=== PATIENT | female | born 1940 | race Caucasian/White ===

== ENCOUNTER → 2023-10-14 12:05 | Outpatient (REF) | payer MEDICARE, OTHER, SELFPAY | LOC: MRI 3T 12:05 | PROVIDERS: ATTENDING PHYSICIAN Physician Assistant Surgical; FAMILY PHYSICIAN Nurse Practitioner Family | DX: M47.812 Spondylosis without myelopathy or radiculopathy, cervical region (principal) | CPT/HCPCS: 72141 ==

== ENCOUNTER → 2023-11-21 07:21 | Outpatient (REF) | payer MEDICARE, OTHER, SELFPAY ==
[2023-11-21 08:40] LABS: ALT (SGPT) 16 U/L (0-35); AST (SGOT) 27 U/L (14-36); Albumin 4.1 g/dl (3.5-5.0); Alkaline Phosphatase 79 U/L (38-126); Blood Urea Nitrogen 16 mg/dl (7-17); Calcium 9.6 mg/dl (8.4-10.2); Carbon Dioxide 28 mmol/L (22-30); Chloride 106 mmol/L (98-107); Glucose 95 mg/dl (70-99); Potassium 4.2 mmol/L (3.5-5.1); Sodium 141 mmol/L (135-145); Total Bilirubin 0.5 mg/dl (0.2-1.3); Total Cholesterol 197 mg/dl (50-199); Total Protein 6.9 g/dl (6.3-8.2); Triglyceride 112 mg/dl (10-149); Very Low Density Lipoprotein 22 mg/dl (0-30); eGFR 55.55
[2023-11-21 08:50] LABS: HDL Cholesterol 115 mg/dl; LDL Cholesterol, Calculated 60 mg/dl
== END ==
LOC: REG 07:21
PROVIDERS: ATTENDING PHYSICIAN Nurse Practitioner Family
DX: Z00.00 Encounter for general adult medical examination without abnormal findings (principal); E78.5 Hyperlipidemia, unspecified
CPT/HCPCS: 36415; 80053; 80061

== ENCOUNTER → 2023-12-04 07:12 | Outpatient (REF) | payer MEDICARE, OTHER, SELFPAY ==
[2023-12-04 13:50] LABS: Iron 128 ug/dl (37-170)
[2023-12-04 14:17] LABS: Glycohemoglobin (HgbA1c) 5.7 % (4.0-5.6)
[2023-12-04 14:43] LABS: TSH Reflex To Free T4 1.65 uIU/ml (0.47-4.68)
[2023-12-04 16:17] LABS: Lyme Antibody Screen, EIA Negative (Negative)
[2023-12-04 21:49] LABS: Ferritin 38.9 ng/ml (11.1-264.0)
[2023-12-04 22:20] LABS: Folate 16.3 ng/ml (2.76-20); Vitamin B12 260 pg/ml (239-931)
[2023-12-05 16:23] LABS: Syphilis/T. pallidum Ab Reflex Negative (Negative)
== END ==
LOC: REG 07:12
PROVIDERS: ATTENDING PHYSICIAN Nurse Practitioner Family
DX: G57.93 Unspecified mononeuropathy of bilateral lower limbs (principal); Z00.00 Encounter for general adult medical examination without abnormal findings; M48.062 Spinal stenosis, lumbar region with neurogenic claudication; I10 Essential (primary) hypertension; E78.5 Hyperlipidemia, unspecified; K59.00 Constipation, unspecified; M85.80 Other specified disorders of bone density and structure, unspecified site; Z79.899 Other long term (current) drug therapy; R25.2 Cramp and spasm; M16.12 Unilateral primary osteoarthritis, left hip; M54.2 Cervicalgia; R79.9 Abnormal finding of blood chemistry, unspecified
CPT/HCPCS: 36415; 82607; 82728; 82746; 83036; 83540; 84443; 86618; 86780

== ENCOUNTER → 2024-04-19 07:04 | Outpatient (REF) | payer MEDICARE, OTHER, SELFPAY ==
[2024-04-19 08:08] LABS: Glucose 91 mg/dl (70-99); Iron 71 ug/dl (37-170)
[2024-04-19 08:59] LABS: Vitamin B12 450 pg/ml (239-931)
[2024-04-19 10:12] LABS: Glycohemoglobin (HgbA1c) 5.4 % (4.0-5.6)
[2024-04-20 20:49] LABS: Homocysteine 13 umol/L (0-15)
== END ==
LOC: REG 07:04
PROVIDERS: ATTENDING PHYSICIAN Specialist; FAMILY PHYSICIAN Nurse Practitioner Family
DX: E11.42 Type 2 diabetes mellitus with diabetic polyneuropathy (principal); G62.9 Polyneuropathy, unspecified; R73.01 Impaired fasting glucose; G25.81 Restless legs syndrome; R20.2 Paresthesia of skin; D51.9 Vitamin B12 deficiency anemia, unspecified
CPT/HCPCS: 36415; 82607; 82947; 83036; 83090; 83540; 83921; 84155; 84165

== ENCOUNTER 2024-11-16 20:28 | Inpatient (IN) | payer MEDICARE, OTHER, SELFPAY ==
[2024-11-16 15:29] VITALS: BP 195/104
[2024-11-16 16:23] LABS: % Basophils 0.5 % (0-2); % Eosinophils 1.1 % (0-6); % Immature Granulocytes 0.3 % (0-0.5); % Lymphocytes 18.5 % (20.5-51.1); % Monocytes 7.5 % (1.7-9.3); % Neutrophils 72.1 % (42.2-75.2); Absolute Eosinophils 0.1 10^3/uL (0-0.7); Absolute Lymphocytes 1.4 10^3/uL (1.2-3.4); Absolute Monocytes 0.6 10^3/uL (0.1-0.6); Absolute Neutrophils 5.3 10^3/uL (1.4-6.5); Hematocrit 41.8 % (37.0-47.0); Hemoglobin 13.8 g/dL (12.0-16.0); Mean Corpuscular Hgb 29.8 pg (27.0-31.0); Mean Corpuscular Volume 90.3 fL (81.0-99.0); Mean Platelet Volume 9.9 fL (7.4-10.4); Nucleated Red Blood Cells % 0 %; Platelet Count 284 10^3/uL (130-400); Red Blood Cell Count 4.63 10^6/uL (4.20-5.40); Red Cell Dist. Width 13.2 % (11.5-14.5); White Blood Cell Count 7.3 10^3/uL (4.8-10.8)
[2024-11-16 16:47] LABS: Troponin I < 0.012 ng/ml
[2024-11-16 16:53] LABS: ALT (SGPT) 15 U/L (0-35); AST (SGOT) 27 U/L (14-36); Albumin 4.7 g/dl (3.5-5.0); Alkaline Phosphatase 90 U/L (38-126); Blood Urea Nitrogen 20 mg/dl (7-17); Calcium 10.3 mg/dl (8.4-10.2); Carbon Dioxide 25 mmol/L (22-30); Chloride 102 mmol/L (98-107); Glucose 105 mg/dl (70-99); Sodium 137 mmol/L (135-145); Total Bilirubin 0.7 mg/dl (0.2-1.3); Total Protein 7.3 g/dl (6.3-8.2); eGFR 55.21
[2024-11-16 18:28] VITALS: BP 187/91
--- NOTE | 2024-11-16 18:49 | ED.CVA ---
History of Present Illness
General
Chief Complaint: CVA/TIA Symptoms
Source: patient and spouse
Exam Limitations: none
Time Seen by Provider: 11/16/24 18:32
Onset of Stroke Symptoms
Onset of symptoms known: Yes
Date of onset of symptoms: 11/14/24
History of Present Illness
History of Present Illness:
84-year-old female hypertensive on lisinopril also baby aspirin presents for evaluation of visual changes on the left side trouble seeing things, also walking into a door started greater than 36 hours ago associate with a right-sided headache no
nausea or vomiting, no slurred speech does not appreciate any arm or leg weakness
Past History
Past History
ED Past Medical History: Other (Questionable PFO, herniated disc, arthritis, migraine); Negative Arrthythmia or CVA
ED Past Surgical History: Gynecological
Social History
Tobacco: Non-smoker
Alcohol: None
Drug: None
Personal:
Living: with family
Employment: Retired
Review of Systems
Review of Systems
All Other Systems: Not applicable
Constitutional: Denies fever or fatigue
Respiratory: Reports no symptoms; Denies trouble breathing
Cardiac: Reports no symptoms
ABD/GI: Reports no symptoms
Neurological: Reports headache and other (Visual changes on the left)
Endocrine: Reports no symptoms
Phy Exam
Physical Exam
Physical Exam:
Physical Exam
General: no apparent distress, not acutely ill
Neck: No jaundice
Heart: s1/s2 regular rate and rhythm, no murmur. equal radial pulses.
Lungs: no acute respiratory distress. clear bilaterally
Abdomen: Not
Neuro: alert and oriented. Left-sided visual field cut
Skin: no rash
Psychiatric: well kept. interactive and cooperative
Extremities: no edema.
Course
Orders/Labs/Results
Orders:
Orders
11/16/24 15:33
Electrocardiogram (*1) Urgent
Reason for Study: TIA/Stroke
CT Head W/o Iv Contrast Urgent
Comment:
Reason For Exam: headache
11/16/24 15:34
EKG- Treatment ONCE
11/16/24 16:05
Complete Blood Count/With Diff Urgent
Comprehensive Metabolic Panel Urgent
Troponin I Urgent
11/16/24 18:48
Aspirin 325 mg PO NOW STA
Abnormal Lab Results
11/16/24
16:05
Lymphocytes % 18.5 L %
(20.5-51.1)
BUN 20 H mg/dl
(7-17)
Glucose 105 H mg/dl
(70-99)
Calcium 10.3 H mg/dl
(8.4-10.2)
11/16/24 16:05
11/16/24 16:05
Vital Signs
Initial and Last Documented VS:
Initial Vital Signs
Temp Pulse Resp BP Pulse Ox
98.3 F 81 20 195/104 99
11/16/24 15:29 11/16/24 15:29 11/16/24 15:29 11/16/24 15:29 11/16/24 15:29
Last Documented Vital Signs
Temp Pulse Resp BP Pulse Ox
98.3 F 68 20 187/91 99
11/16/24 15:29 11/16/24 18:32 11/16/24 15:29 11/16/24 18:28 11/16/24 18:30
MDM/Problems Addressed
Differential Diagnosis Includes:
Stroke mass seizure with Alfonso's paralysis hypertensive urgency
MDM/Problems Addressed:
Visual changes headache
Chronic conditions affecting care: HTN
Acute Exacerbation and/or Progression of Chronic Illness: HTN
*Radiology
Radiology exam reviewed: radiology read reviewed
*Pulse Oximetry
Patient hypoxic: no
*EKG
Interpreted by ED Provider?: Yes
Interpretation: normal
Comparison EKG: no comparison EKG present
Heart Rate: 78
Rate: normal
Rhythm: sinus
Ischemia: no ischemia
*Chenille Machine Operator Interpretation
Interpretation: normal
Heart Rate: 78
Rhythm: sinus
*Critical Care Note
Total Time (30-74mins, 75-104mins- exclusive of procedures): 12
Data Reviewed
Source: patient and spouse
Prescriptions/Medications Considered But Not Given:
tpa
Update Note
Update Note:
Patient with strokelike symptoms, CT confirms stroke in the right occipital lobe which appears to correlate with her symptoms, will give full dose aspirin consideration for Plavix, will allow so hypertension permissively here, will be admitted
ED Attending Note
-
Portions of this chart may have been created with voice recognition software.� Occasional wrong word or��sound alike� substitutions may have occurred due to the inherent limitations of voice recognition software.
Discharge Plan
Departure
Patient Disposition: Admit
Date of Disposition: 11/16/24
Time of Disposition: 18:57
Presentation/result/management discussed w/ accepting MD/DO: Hospitalist
Patient with high blood pressure during this ER visit?: Yes
Condition: Fair
Covid-19: Not Applicable
Discharge Problem:
Stroke
Instructions: Stroke (DC)
Prescriptions:
No Action
magnesium 250 mg Tablet
250 mg PO DAILY Qty: 1 0RF
cholecalciferol (vitamin D3) [Vitamin D3] 25 mcg (1,000 unit) Tablet,Chewable
25 mcg PO DAILY Qty: 1 0RF
calcium 500 mg Tablet
500 mg PO DAILY
hydrocodone-acetaminophen 5-325 mg tablet
1 tab PO Q6H PRN (Reason: moderate-severe pain) Qty: 30 0RF
Patient Comments:
for post op
Rx Instructions:
1 tab for moderate pain, 2 if severe.
Dx total joint. Ongoing therapy.
celecoxib [Celebrex] 200 mg capsule
200 mg PO DAILY Qty: 14 0RF
Patient Comments:
for post op
Rx Instructions:
Take with food.
DO NOT take within 2 hours of Aspirin post-surgery.
famotidine [Pepcid] 20 mg tablet
20 mg PO HS Qty: 14 0RF
Patient Comments:
For post op
Rx Instructions:
Take nightly while on Celebrex to reduce GI upset.
dexamethasone 4 mg tablet
4 mg PO BID Qty: 7 0RF
Patient Comments:
for post op
Rx Instructions:
Start night of discharge and take 2x daily until finished.
Take with food.
mupirocin 2 % ointment
1 applic intranasal BID Qty: 1 0RF
Patient Comments:
Applied nasal ointment 01/04/23 at 0500
ondansetron HCl 4 mg tablet
4 mg PO Q6H PRN (Reason: nausea and vomiting) Qty: 20 0RF
Patient Comments:
for post op
cyclobenzaprine 5 mg tablet
5 mg PO HS PRN (Reason: muscle spasm/insomnia) Qty: 10 0RF
Patient Comments:
for post op. Took Monday night. Per patient called Cindy Matta and checked with her to take a dose pre op.
Rx Instructions:
Caution with [place] - can cause drowsiness.
Take only as needed/as directed.
aspirin 325 mg tablet
325 mg PO DAILY Qty: 30 0RF
Rx Instructions:
Take daily x4 weeks for blood clot prevention; then resume Aspirin 81 mg daily.
docusate sodium [Colace] 100 mg capsule
100 mg PO BID Qty: 30 0RF
senna 8.6 mg capsule
17.2 mg PO BID Qty: 30 0RF
acetaminophen 325 mg capsule
650 mg PO Q4H PRN (Reason: mild pain) Qty: 60 0RF
Rx Instructions:
DO NOT exceed >4000 mg daily while on [place].
1 [place] tab = 325 mg of Tylenol.
lisinopril 10 mg Tablet
10 mg PO DAILY Qty: 1 0RF
Rx Instructions:
HOLD if systolic blood pressure <130 while on Hydrocodone.
Interventions
Interventions:
*General Assessment Last Done: 11/16/24 15:29
ED- Pulmonary Assessment Last Done: 11/16/24 18:32
ED- Neurological Assessment Last Done: 11/16/24 18:32
ED- Cardiac Assessment Last Done: 11/16/24 18:32
Discharge Date and Time
Print Language: SLOVAK
[2024-11-16] MEDS: ASPIRIN 325 MG PO (18:55)
[2024-11-16 19:00] VITALS: BP 183/105
--- NOTE | 2024-11-16 19:34 | HPS.HSE ---
Family Physician
-
Family Physician: LUIS Hernandez
Chief Complaint
-
vision symptoms
History of Present Illness
This is a 84-year-old with past medical history of hypertension presenting to the emergency department with approximately 2 days of vision changes.
Patient reports that on evening and she started having difficulty saying the left side of her visual field. She is unable to handle things that are located to the left side. She would not see her if he is on the left side. She
could not see the left side of the TV. She also became confused later on and had difficulty using objects such as her electric toothbrush. She was not having any memory difficulties otherwise. She reported having a headache on the right side of
her head and face. She denies any difficulty with speech. She denies any difficulty swallowing. She denies any numbness or tingling. Spouse denies any facial asymmetry. Patient reports that she takes aspirin daily as well as lisinopril for
blood pressure.
Patient denies known history of CVA however she said that in the late she had an episode of vision changes and was started on aspirin at that time. Patient denies any recent episodes of palpitations. She denies any recent episodes of chest
pain. She denies orthostatic symptoms.
She reports that the vision symptoms have persisted but they confusion with use of objects is improved.
In the emergency department she was hypertensive to 183/100 with a pulse of 78 and satting 98% on room air. ECG shows normal sinus rhythm at a rate of [address] or T wave changes. CBC was unremarkable. Electrolytes BUN/creatinine were
all in normal range. CT of the head shows no density changes localized in the inferior right occipital lobe, just superior to the tentorium cerebelli which is new in comparison to prior images.
Medical History
Past Medical History
Past Medical History: Reports HTN and Other (Peripheral neuropathy)
Past Surgical History: Reports Gynocological (Hysterectomy 1983) and Orthopedic (Status post laminectomy and spinal fusion on 05/24/2022, left total hip arthroplasty in 2022.)
Social History
Tobacco: Non-smoker
Alcohol: None
Drug: None
Personal:
Living: With Family
Employment: Retired
Family History
Family History: Not pertinent
Allergies / Home Medications
Allergies reflects when Allergies were last updated in [facility].
Home Medications with original date entered in [facility]
Allergy/Medication List:
Allergies
Allergy/AdvReac Type Severity Reaction Status Date / Time
mussels Allergy Vomiting Verified 11/16/24 15:28
Penicillins Allergy Rash Verified 11/16/24 15:28
Home Medications
cholecalciferol (vitamin D3) 25 mcg (1,000 unit) chewable tablet (Vitamin D3) 25 mcg PO DAILY Supplement #1 tab 04/28/22
magnesium 250 mg tablet 250 mg PO DAILY Electrolyte Repletion #1 tab 04/28/22
lisinopril 10 mg tablet 10 mg PO DAILY Blood pressure #1 tab 01/04/23
acetaminophen 500 mg tablet 500 mg PO Q6HPRN PRN MILD PAIN 11/16/24
aspirin 81 mg tablet,delayed release 81 mg PO DAILY 11/16/24
calcium carbonate 500 mg PO DAILY 11/16/24
cyanocobalamin (vitamin B-12) 1,000 mcg tablet 1,000 mcg PO DAILY 11/16/24
gabapentin 100 mg capsule 100 mg PO HS 11/16/24
Review of Systems
-
History Source: Patient and Family
Constitutional: Reports No Symptoms
EENT: Reports No Symptoms
Respiratory: Reports No Symptoms
Cardiac: Reports No Symptoms
Abdomen/GI: Reports No Symptoms
: Reports No Symptoms
Musculoskeletal: Reports No Symptoms
Skin: Reports No Symptoms
Neurological: Reports Headache and Other (vision changes)
Endocrine: Reports No Symptoms
Hematologic/Lymphatic: Reports No Symptoms
Psych: Reports No Symptoms
Physical Exam
Vital Signs
Vital Signs
Temp Pulse Resp BP Pulse Ox
98.3 F 78 14 183/105 98
11/16/24 15:29 11/16/24 19:00 11/16/24 19:00 11/16/24 19:00 11/16/24 19:00
Physical Exam
General: Well Developed, Well Nourished, No Apparent Distress, Comfortable and Conversant
HEENT: NormoCephalic, Anicteric, Moist mucous membranes, Atraumatic and Good Dentition
Respiratory: Clear
Cardiac: S1/S2 and Regular Rhythm
Breast: Deferred by me
GI: Soft, Non Tender, Non Distended and Normal Bowel Sounds
Rectal: Deferred by Provider
Genito-urinary: Deferred by me
Musculoskeletal: No Clubbing and No Cyanosis
Neuro: AO x 3, No Motor Deficits, Cranial Nerves Intact, No Sensory Deficits and Other (Left upper quadrantanopia ); No Slurred Speech or Facial Droop
Hematologic/Lymphatic: No Lymphadenopathy
Psych: Calm
Laboratory Results
-
11/16/24 16:05
11/16/24 16:05
Laboratory Results
Total Bilirubin 0.7 mg/dl (0.2-1.3) 11/16/24 16:05
AST 27 U/L (14-36) 11/16/24 16:05
ALT 15 U/L (0-35) 11/16/24 16:05
Alkaline Phosphatase 90 U/L (38-126) 11/16/24 16:05
Troponin I < 0.012 ng/ml 11/16/24 16:05
Data Reviewed
-
CT Scan: Report Reviewed by me
Medical Tests (Nuc Med, Echo, EKG etc): Image Personally Visualized and interpreted
Lab Data: Labs Reviewed by me
Old Records: Reviewed
Impression/Plan
-
IMPRESSION:
84-year-old female with past medical history significant for hypertension and a remote episode of vision loss in the for which she was started on aspirin presents to the emergency department after 2 days of experiencing left upper visual field
loss and some mild confusion. Condition appears to have resolved. She still has left upper quadrantanopsia. CT scan shows changes in the right inferior occipital lobe consistent with an acute CVA. Onset about 48 hours ago. Not a TPA candidate.
NIHSS = 1
PLAN:
1. CVA - Right inferior occipital CVA.
- admit to telemetry
- d/w neuro, CT Head & neck angio, no MRI
- check cardiovascular panel and inflammatory panel
- echo
- continue asa, start plavix 75
- continue lisinopril with permissive hypertention
- neurochecks q 6
- diet as tolerated
- PTOT and community service officer coordinator
- neurology consulted
DVT PPX - lovenox sq
Code status - Full Code
[2024-11-16] MEDS: APRESOLINE 5 MG IV (19:51)
[2024-11-16 19:54] VITALS: BP 180/74; BMI 25.9
[2024-11-16] MEDS: PLAVIX 75 MG PO (19:56)
[2024-11-16 21:10] VITALS: BP 152/91; BMI 22.9
[2024-11-16] MEDS: NEURONTIN 100 MG PO (22:46)
[2024-11-16 23:51] VITALS: BP 125/61
[2024-11-17] VITALS (8 sets, daily range): BP systolic 115–147; BP diastolic 61–82; PULSE 79–90; O2SAT 96; BMI 21.9
--- NOTE | 2024-11-17 01:23 | PTCARENOTE ---
Patient arrived to floor from ED. Patient ambulated from stretcher to bed. Patient oriented to room. Patient's call jules within reach, bed in lowest position. Will continue to monitor.
[2024-11-17 07:48] LABS: HDL Cholesterol 96 mg/dl; LDL Cholesterol, Calculated 82 mg/dl; Magnesium 2.1 mg/dl (1.6-2.3); Total Cholesterol 192 mg/dl (50-199); Triglyceride 72 mg/dl (10-149); Very Low Density Lipoprotein 14 mg/dl (0-30)
[2024-11-17 07:52] LABS: VerifyNow Aspirin 413 ARU
[2024-11-17] MEDS: PLAVIX 75 MG PO (08:07)
[2024-11-17] MEDS: ZESTRIL 10 MG PO (08:07)
[2024-11-17] MEDS: ASPIR LOW (ENTERIC COATED) 81 MG PO (08:07)
[2024-11-17] MEDS: VITAMIN B-12 1000 MCG PO (08:07)
[2024-11-17 08:47] LABS: Glycohemoglobin (HgbA1c) 5.5 % (4.0-5.6)
--- NOTE | 2024-11-17 09:04 | PTOTSP ---
Speech Pathology
Clinical Swallow Evaluation
84F with new R inferior occipital CVA presents with a WFL oropharyngeal swallow. No overt s/s of aspiration or penetration observed this date. Speech to follow oropharyngeal swallowing briefly, re: cannot r/o silent aspiration at bedside this date
given presence of new CVA.
Question possible changes to executive functioning and verbal fluency/word finding. RETAIL INVENTORY CONTROL CLERK service to perform speech/communication evaluation as able.
Recommend:
1. Regular textures (IDDSI 7), thin liquids (IDDSI 0)
2. Meds as best tolerated
3. RETAIL INVENTORY CONTROL CLERK service to follow up re: to ensure diet level tolerance; perform speech/communication evaluation as able.
--- NOTE | 2024-11-17 12:39 | W.PN.HOSP.TC ---
Today's Communication/Plan
-
Echo Monday
PMR eval
Assessment / Plan
Assessment / Plan
Assessment:
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
- continue tele
- CT-A negative. 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
- Echo Monday
- continue ASA/Plavix
- increase to Lipitor 40mg
- neuro-checks
- Neuro eval
- rehab evaluations. Acute rehab recommended. PMR consulted
Essential HTN
- continue MUKESH; normotensive goals
DVT ppx: Lovenox
Code: Full
Anticipated Discharge: 24 - 48 hours
Subjective/Interval History
-
Date of Service: November 17, 2024
resting comfortably
Objective Data
-
Vital Signs:
Vital Signs
Temp Pulse Resp BP Pulse Ox
98.9 F 74 21 128/70 95
11/17/24 11:26 11/17/24 11:26 11/17/24 11:26 11/17/24 11:26 11/17/24 11:26
I&O
11/16/24 11/17/24 11/18/24
06:59 06:59 06:59
Intake Total 480 / 480
Balance 480 / 480
Physical Exam
-
General: No Apparent Distress
HEENT: Normocephalic
Respiratory: Negative Wheezes
Cardiac: Regular Rhythm and S1/S2
GI: Soft and Nontender
Neuro: AO x 3
Psych: Calm
Data Reviewed
-
Total Time Spent with Patient (in minutes): 41
Labs: Labs Reviewed by me
--- NOTE | 2024-11-17 16:41 | CON.NEURO ---
Neuro Assessment/Plan
Assessment
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
90 days of DAPT, Lipitor 80 as [facility] was shown to be superior to stenting for large vessel stenosis
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
advised that the left lower quadrant usually comes back which it seems to be doing, and the left upper quadrant may recover but often doesn't recover;
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
Consultation
Order
Date of Consultation: 11/17/24
Requesting Provider: Jose Manuel Garcia
Reason for Consult: stroke
Subjective/Objective
Subjective Data
Date of Service: November 17, 2024
Objective Data
Vital Signs
Temp Pulse Resp BP Pulse Ox
36.9 C 90 21 129/66 96
11/17/24 15:34 11/17/24 15:34 11/17/24 15:34 11/17/24 15:34 11/17/24 15:34
Lab Results
11/16/24 16:05
11/16/24 16:05
Sodium 137 mmol/L (135-145) 11/16/24 16:05
Potassium 5.0 mmol/L (3.5-5.1) 11/16/24 16:05
BUN 20 mg/dl (7-17) H 11/16/24 16:05
Glucose 105 mg/dl (70-99) H 11/16/24 16:05
Calcium 10.3 mg/dl (8.4-10.2) H 11/16/24 16:05
LDL Cholesterol, Calc 82 mg/dl 11/17/24 06:58
Patient Allergies
mussels Allergy (Verified 11/16/24 15:28)
Vomiting
Penicillins Allergy (Verified 11/16/24 15:28)
Rash
Medications
-
Active Medications
Generic Name Dose Route Start Last Admin
Trade Name Freq PRN Reason Stop Dose Admin
Acetaminophen 650 mg 11/16/24 21:04
Acetaminophen 650 Mg Rectal Suppository RECTAL 12/14/24 21:03
Q4HPRN PRN
WEBER, mild pain, or temp >100.4F
Acetaminophen 650 mg 11/16/24 21:04
Acetaminophen 325 Mg Tablet PO 12/14/24 21:03
Q4HPRN PRN
WEBER, mild pain, or temp >100.4F
Aspirin 81 mg 11/17/24 08:00 11/17/24 08:07
Aspirin 81 Mg (Enteric Coated) Tablet PO 12/15/24 07:59 81 mg
DAILY ANITA Administration
Atorvastatin Calcium 40 mg 11/17/24 18:00
Atorvastatin (Lipitor) 20 Mg Tablet PO 12/15/24 17:59
QPM ANITA
Clopidogrel Bisulfate 75 mg 11/17/24 08:00 11/17/24 08:07
Clopidogrel 75 Mg Tablet PO 12/15/24 07:59 75 mg
DAILY ANITA Administration
Cyanocobalamin 1,000 mcg 11/17/24 08:00 11/17/24 08:07
Cyanocobalamin 1,000 Mcg Tablet PO 12/15/24 07:59 1,000 mcg
DAILY ANITA Administration
Enoxaparin Sodium 40 mg 11/17/24 18:00
Enoxaparin Sodium 40 Mg/0.4 Ml Syringe SC 12/15/24 17:59
QPM ANITA
Gabapentin 100 mg 11/16/24 22:00 11/16/24 22:46
Gabapentin 100 Mg Capsule PO 12/14/24 21:59 100 mg
HS ANITA Administration
Hydralazine HCl 5 mg 11/16/24 23:00
Hydralazine 20 Mg/Ml Vial IV 12/14/24 22:59
Q4HPRN PRN
for SBP > 180
Lisinopril 10 mg 11/17/24 08:00 11/17/24 08:07
Lisinopril 10 Mg Tablet PO 12/15/24 07:59 10 mg
DAILY ANITA Administration
Sodium Chloride 0 flush 11/16/24 22:00
Sodium Chloride 0.9% (Flush) Syringe IV 12/14/24 21:59
PER PROTOCOL ANITA
Home Medications
�Medication �Instructions �Recorded
cholecalciferol (vitamin D3) 25 25 mcg PO DAILY Supplement #1 tab 04/28/22
mcg (1,000 unit) chewable tablet
(Vitamin D3)
magnesium 250 mg tablet 250 mg PO DAILY Electrolyte 04/28/22
Repletion #1 tab
lisinopril 10 mg tablet 10 mg PO DAILY Blood pressure #1 01/04/23
tab
acetaminophen 500 mg tablet 500 mg PO Q6HPRN PRN MILD PAIN 11/16/24
aspirin 81 mg tablet,delayed 81 mg PO DAILY 11/16/24
release
calcium carbonate 500 mg PO DAILY 11/16/24
cyanocobalamin (vitamin B-12) 1,000 mcg PO DAILY 11/16/24
1,000 mcg tablet
gabapentin 100 mg capsule 100 mg PO HS 11/16/24
[2024-11-17] MEDS: LOVENOX 40 MG SC (17:31)
[2024-11-17] MEDS: LIPITOR 80 MG PO (17:31)
[2024-11-17] MEDS: NEURONTIN 100 MG PO (21:04)
[2024-11-17] MEDS: TYLENOL 650 MG PO (23:15)
[2024-11-18] VITALS (7 sets, daily range): BP systolic 121–160; BP diastolic 65–78; PULSE 78; O2SAT 98
[2024-11-18] MEDS: ZESTRIL 10 MG PO (07:48)
[2024-11-18] MEDS: PLAVIX 75 MG PO (07:50)
[2024-11-18] MEDS: VITAMIN B-12 1000 MCG PO (07:50)
[2024-11-18] MEDS: ASPIR LOW (ENTERIC COATED) 81 MG PO (07:50)
[2024-11-18] MEDS: COLACE 100 MG PO ×2 (08:17→21:29)
[2024-11-18] MEDS: MIRALAX 17 GRAMS PO (08:17)
--- NOTE | 2024-11-18 09:48 | CON.MD ---
Documented by User: Bambi Maya PA-C 11/18/24 17:56
Consultation - Medical
-
Referring Provider:�Dr. Sahil Rico
Chief Complaint:�CVA
�
History of Present Illness:�84-year-old female hypertensive on lisinopril also baby aspirin, Peripheral neuropathy, remote episode of vision loss in the for which she was started on aspirin who presents for evaluation of the left upper visual
field loss and some mild confusion. Had trouble seeing things, also walking into a door started greater than 36 hours ago associate with a right-sided headache no nausea or vomiting, no slurred speech does not appreciate any arm or leg weakness. She
still has left upper quadrantanopsia. CT scan shows changes in the right inferior occipital lobe consistent with an acute CVA. Onset about 48 hours ago. Not a TPA candidate. NIHSS = 1.
�
CT scan of Head -11/16/2024
Subtle poorly defined of decreased density within the inferior right occipital lobe just superior to the tentorium. This appears to involve the white matter and cortex. This appears to be new since previous examinations. On consideration would be a
focal area of infarction, age uncertain. However, other etiologies such as edema or demyelination are considered. As warranted, consider further evaluation with MRI of the brain without and with contrast, if there are no contraindications. Mild to
moderate diffuse atrophy.
CTA- head and neck - 11/16/2024 -Questionable mild diminished and irregular enhancement involving the right posterior cerebral artery P2 and P2 segments, raising possibility of cerebrovascular disease.
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
Echo 11/18/2024
Normal left ventricular chamber size. Normal left ventricular systolic
function. Left ventricular ejection fraction is 55%.
Mild mitral regurgitation.
Mild aortic regurgitation.
Mild tricuspid regurgitation.
No prior echocardiogram for comparison
�
Past Medical History:�Questionable PFO, herniated disc, arthritis, migraine, Peripheral neuropathy, laminectomy and spinal fusion on 05/24/2022, left total hip arthroplasty in 2022.) Left upper quadrantanopia
Procedure History:�Hysterectomy 1983, status post laminectomy and spinal fusion on 05/24/2022, left total hip arthroplasty in 2022
Family History:�not pertinent
�
Social History:�
Functional Level Premorbidly:�Independent with all activities�
Functional Level Currently:�Transfer�supervision, ambulated 30 feet +15 feet with rolling walker and min assist x 1 for balance with turning. Walk with reciprocal gait, relying on rolling walker which patient does not use at baseline., Loss of
balance with turning. Grooming�set up, toileting�min assist, upper extremity care set up, lower extremity self-care�min assist,
�
Tobacco:�Denies�
Alcohol:�Denies�
Drug use:�Denies�
�
Lives with:�spouse
24-hour assistance available:�
Number of floors:�Multi level
# steps to enter:�2
# steps to second floor: 5 or 7 steps to get to bedroom.
Potential First floor set up:�no
Driving:�Yes
Occupation:�Retired
�
�
Allergies:�
Allergy/AdvReac Type Severity Reaction Status Date / Time
mussels Allergy Vomiting Verified 11/16/24 15:28
Penicillins Allergy Rash Verified 11/16/24 15:28
�
Review of Systems:�
Constitutional: (x) Normal _
Eye: (x) abNormal _visual loss left eye
Ear/Nose/Throat: (x) Normal _
Respiratory: (x) Normal _
Cardiovascular: (x) Normal _
Gastrointestinal: (x) Normal _
Genitourinary: (x) Normal _
Musculoskeletal: (x) Normal _
Integumentary: (x) Normal _
Neurologic: (x) abNormal _CVA
Psychiatric: (x) Normal _
Endocrine: (x) Normal _
Hematologic/Lymphatic: (x) Normal _
Allergic/Immunologic: (x) Normal _
�
Medications:�
Active Current Visit Medication List
Category Date Time Status
Acetaminophen [Tylenol/Feverall] Med 11/16/24 21:04 Active
650 mg RECTAL Q4HPRN PRN
Acetaminophen [Tylenol] Med 11/16/24 21:04 Active
650 mg PO Q4HPRN PRN
Aspirin Low Dose EC [Aspir Low (Enteric Coated)] Med 11/17/24 08:00 Active
81 mg PO DAILY
Atorvastatin [Lipitor] Med 11/17/24 18:00 Active
80 mg PO QPM
Bisacodyl [Dulcolax] Med 11/18/24 07:59 Active
10 mg RECTAL DAILYPRN PRN
Clopidogrel Bisulfate [Plavix] Med 11/17/24 08:00 Active
75 mg PO DAILY
Cyanocobalamin [Vitamin B-12] Med 11/17/24 08:00 Active
1,000 mcg PO DAILY
Docusate Sodium [Colace] Med 11/18/24 08:00 Active
100 mg PO BID
Enoxaparin Sodium [Lovenox] Med 11/17/24 18:00 Active
40 mg SC QPM
Flush (0.9% Sodium Chloride) [Flush (Nss)] Med 11/16/24 22:00 Active
See Dose Instructions IV PER PROTOCOL
Gabapentin [Neurontin] Med 11/16/24 22:00 Active
100 mg PO HS
HydrALAZINE [Apresoline] Med 11/16/24 23:00 Active
5 mg IV Q4HPRN PRN
Lisinopril [Zestril] Med 11/17/24 08:00 Active
10 mg PO DAILY
Polyethylene Glycol Powder [Miralax] Med 11/18/24 08:00 Active
17 grams PO DAILY
�
Vitals:�
Temp Pulse Resp BP Pulse Ox
98.0 F 87 18 127/68 98
11/18/24 15:05 11/18/24 15:05 11/18/24 15:05 11/18/24 15:05 11/18/24 15:05
Height 5 ft 3 in
Actual Weight 56.109 kg
Body Mass Index (BMI) 21.9
�
Physical Exam:�
General Appearance/Observation: Well-developed, well-nourished individual in no apparent distress.�
Pain/Comfort Assessment: Denies�
Mood/Affect: Appropriate�, pleasant
�
Integumentary/Operative Site:�
�� Pressure Ulcer Evaluation: absent over heels.�
��
�� Other Type of Wound: absent�
��
�
Eyes: Conjunctiva/Lids: normal���� Pupils: pupils equal round and reactive to light and Accommodation�
Ears/Nose/Throat: oral mucosa moist,� throat clear.������������ Lips/Teeth/Gums: normal�
Neck: No muscle spasm or tenderness�
Cardiovascular: Heart: regular, no murmur�
Pulses: dorsalis pedis 2+ bilaterally�
Respiratory: Respiratory Effort/Chest Expansion: normal������� Auscultation: Clear to auscultation bilaterally�
Gastrointestinal: abdomen not tender, no distension, normal abdominal bowel sounds
Genitourinary: No Dowling�
Extremities:�Edema: None�Cyanosis: None�Trophic�changes: None
�
Neurology Exam:
Orientation: Alert, Oriented to self, Time, Place�
Memory: Intact for immediate medical concerns
Comprehension: Intact
Two step command: Intact
Naming: Intact
Cranial Nerves:
�� CNII:�Pupillary light reflex: Intact����Visual Field: Impaired on the left ,
�� CN III, IV, : Extraocular muscles: Intact�
�� CN V:�Facial Sensation�at�Forehead: Intact,�Maxilla: Intact,�Mandible: Intact
�� CN VII:�Facial movement: Symmetric
�� CN VIII:�Hearing: Normal
�� CN IX/X:�Speech & swallow: Normal,�Position of Uvula: Midline
�� CN XI:�Shoulder shrug: Symmetric
�� CN XII:�Tongue protrusion: Midline
Sensory:
�� Light touch: Intact in bilateral upper and lower extremities
��
�
Reflexes:
�� Biceps: 2+ bilaterally
�� Brachioradialis: 2+ bilaterally
�� Triceps: 2+ bilaterally
�� Patellar: 2+ bilaterally
�� Achilles: 1/4 bilaterally
�� Babinski: Down going bilaterally
�� Clonus: None
�� Vitaliy: Negative bilaterally�
Cerebellar: Dysmetria/Ataxia: None�
Musculoskeletal:
Motor: (Manual muscle scale 0-5)�
Muscle SA EF WE EE FF FA HF KE DF EHL PF
Right� 5 5 5 5 5 5 5 5 5 5 5
Left 5 5 5 5 5 5 5 5 5 5 5
�
Tone: Normal in all extremities�
Range of Motion: Passively within normal limits in all extremities�
�
Lab Results
Labs
WBC 5.1 10^3/uL (4.8-10.8) 11/18/24 08:06
RBC 4.55 10^6/uL (4.20-5.40) 11/18/24 08:06
Hgb 13.5 g/dL (12.0-16.0) 11/18/24 08:06
Hct 41.4 % (37.0-47.0) 11/18/24 08:06
MCV 91.0 fL (81.0-99.0) 11/18/24 08:06
MCH 29.7 pg (27.0-31.0) 11/18/24 08:06
MCHC 32.6 g/dL (33.0-37.0) L 11/18/24 08:06
RDW 13.3 % (11.5-14.5) 11/18/24 08:06
Plt Count 266 10^3/uL (130-400) 11/18/24 08:06
MPV 10.0 fL (7.4-10.4) 11/18/24 08:06
Abs Immat Gran (auto) 0.0 10^3/uL (0-0.05) 11/16/24 16:05
Absolute Neuts (auto) 5.3 10^3/uL (1.4-6.5) 11/16/24 16:05
Absolute Lymphs (auto) 1.4 10^3/uL (1.2-3.4) 11/16/24 16:05
Absolute Monos (auto) 0.6 10^3/uL (0.1-0.6) 11/16/24 16:05
Absolute Eos (auto) 0.1 10^3/uL (0-0.7) 11/16/24 16:05
Absolute Basos (auto) 0.0 10^3/uL (0-0.2) 11/16/24 16:05
Immature Gran % 0.3 % (0-0.5) 11/16/24 16:05
Neutrophils % 72.1 % (42.2-75.2) 11/16/24 16:05
Lymphocytes % 18.5 % (20.5-51.1) L 11/16/24 16:05
Monocytes % 7.5 % (1.7-9.3) 11/16/24 16:05
Eosinophils % 1.1 % (0-6) 11/16/24 16:05
Basophils % 0.5 % (0-2) 11/16/24 16:05
Nucleated RBC % 0 % 11/16/24 16:05
Plt Function - Aspirin 413 ARU 11/17/24 06:58
Sodium 139 mmol/L (135-145) 11/18/24 08:06
Potassium 4.6 mmol/L (3.5-5.1) 11/18/24 08:06
Chloride 105 mmol/L (98-107) 11/18/24 08:06
Carbon Dioxide 26 mmol/L (22-30) 11/18/24 08:06
BUN 22 mg/dl (7-17) H 11/18/24 08:06
Creatinine 0.9 mg/dL (0.6-1.0) 11/18/24 08:06
Estimated Creat Clear 38 ml/min 11/18/24 08:06
eGFR > 60.00 11/18/24 08:06
Glucose 81 mg/dl (70-99) 11/18/24 08:06
Hemoglobin A1c 5.5 % (4.0-5.6) 11/17/24 06:58
Calcium 9.5 mg/dl (8.4-10.2) 11/18/24 08:06
Magnesium 2.1 mg/dl (1.6-2.3) 11/17/24 06:58
Total Bilirubin 0.7 mg/dl (0.2-1.3) 11/16/24 16:05
AST 27 U/L (14-36) 11/16/24 16:05
ALT 15 U/L (0-35) 11/16/24 16:05
Alkaline Phosphatase 90 U/L (38-126) 11/16/24 16:05
Troponin I < 0.012 ng/ml 11/16/24 16:05
Total Protein 7.3 g/dl (6.3-8.2) 11/16/24 16:05
Albumin 4.7 g/dl (3.5-5.0) 11/16/24 16:05
Triglycerides 72 mg/dl (10-149) 11/17/24 06:58
Total Cholesterol 192 mg/dl (50-199) 11/17/24 06:58
LDL Cholesterol, Calc 82 mg/dl 11/17/24 06:58
VLDL Cholesterol, Calc 14 mg/dl (0-30) 11/17/24 06:58
HDL Cholesterol 96 mg/dl 11/17/24 06:58
�
Diagnostic Results:�as per HPI�
�
Echo 11/18/2024
Normal left ventricular chamber size. Normal left ventricular systolic
function. Left ventricular ejection fraction is 55%.
Mild mitral regurgitation.
Mild aortic regurgitation.
Mild tricuspid regurgitation.
No prior echocardiogram for comparison
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
�
Plan�
PT/OT to increase independence with ADLs, improve balance, coordination, endurance, strength, mobility, community reintegration, decreased burden of care on others and family education.�
�
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 Per neuro- 90 days of DAPT. Cont aspirin and started on Plavix 75mg. statin, and blood pressure control (SBP less than 180 and diastolic less than 100 to participate with
therapy for ischemic stroke). Continue to monitor neurologic status.�
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 Will need help scanning the environment
HTN: Lisinopril 10 mg daily, hydralazine 5 mg IV every 4 as needed,, monitor closely�
HLD: Atorvastatin 80 mg every afternoon
Psych: Psychology consult.� Monitor mood, adjust medications as needed.�
Skin: monitor for pressure sores/rashes/lesions.�
Pain: acetaminophen as needed.� Gabapentin 100 mg at bedtime
Bowel: Colace and Senna, PRN bisacodyl.�
Bladder: Time void, PVRs, PRN straight cath.�
GI Prophylaxis: can add Pantoprazole�
DVT Prophylaxis: Mechanical and Lovenox 40 every afternoon
Pulmonary: Incentive spirometry�
Safety: Continue to reinforce assistance with all transfers.�
Code Status:� DNR�
Dispo�(date/plan/equipment needs): Home with family care.� Social history reviewed.�
�
Functional and Medical Goals:�Modified Independent with ADL�s, ambulation, transfers�
�
�-�Discharge Destination:�Acute inpatient rehabilitation for PT/OT to increase independence with ADLs, improve balance, coordination, endurance, strength, mobility,
�
Thank you for allowing me to care for your patient. Please contact me with any questions or concerns.

Documented by User: Blake Og MD 11/18/24 22:28
Consultation - Medical
-
Referring Provider:�Dr. Sahil Rico
Chief Complaint:�CVA
�
History of Present Illness:�84-year-old female hypertensive on lisinopril also baby aspirin, Peripheral neuropathy, remote episode of vision loss in the for which she was started on aspirin who presents for evaluation of the left upper visual
field loss and some mild confusion. Had trouble seeing things, also walking into a door started greater than 36 hours ago associate with a right-sided headache no nausea or vomiting, no slurred speech does not appreciate any arm or leg weakness. She
still has left upper quadrantanopsia. CT scan shows changes in the right inferior occipital lobe consistent with an acute CVA. Onset about 48 hours ago. Not a TPA candidate. NIHSS = 1.
�
CT scan of Head -11/16/2024
Subtle poorly defined of decreased density within the inferior right occipital lobe just superior to the tentorium. This appears to involve the white matter and cortex. This appears to be new since previous examinations. On consideration would be a
focal area of infarction, age uncertain. However, other etiologies such as edema or demyelination are considered. As warranted, consider further evaluation with MRI of the brain without and with contrast, if there are no contraindications. Mild to
moderate diffuse atrophy.
CTA- head and neck - 11/16/2024 -Questionable mild diminished and irregular enhancement involving the right posterior cerebral artery P2 and P2 segments, raising possibility of cerebrovascular disease.
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
Echo 11/18/2024
Normal left ventricular chamber size. Normal left ventricular systolic
function. Left ventricular ejection fraction is 55%.
Mild mitral regurgitation.
Mild aortic regurgitation.
Mild tricuspid regurgitation.
No prior echocardiogram for comparison
�
Past Medical History:�Questionable PFO, herniated disc, arthritis, migraine, Peripheral neuropathy, Left upper quadrantanopia
Procedure History:�Hysterectomy 1983, status post laminectomy and spinal fusion on 05/24/2022, left total hip arthroplasty in 2022
Family History:�not pertinent
�
Social History:�
Functional Level Premorbidly:�Independent with all activities�
Functional Level Currently:�Transfer�supervision, ambulated 30 feet +15 feet with rolling walker and min assist x 1 for balance with turning. Walk with reciprocal gait, relying on rolling walker which patient does not use at baseline., Loss of
balance with turning. Grooming�set up, toileting�min assist, upper extremity care set up, lower extremity self-care�min assist,
�
Tobacco:�Denies�
Alcohol:�Denies�
Drug use:�Denies�
�
Lives with:�spouse
24-hour assistance available:�Yes
Number of floors:�Multi level
# steps to enter:�2
# steps to second floor: 5 or 7 steps to get to bedroom.
Potential First floor set up:�no
Driving:�Yes
Occupation:�Retired
�
�
Allergies:�
Allergy/AdvReac Type Severity Reaction Status Date / Time
mussels Allergy Vomiting Verified 11/16/24 15:28
Penicillins Allergy Rash Verified 11/16/24 15:28
�
Review of Systems:�
Constitutional: (x) Normal _
Eye: (x) abNormal _visual loss left eye
Ear/Nose/Throat: (x) Normal _
Respiratory: (x) Normal _
Cardiovascular: (x) Normal _
Gastrointestinal: (x) Normal _
Genitourinary: (x) Normal _
Musculoskeletal: (x) Normal _
Integumentary: (x) Normal _
Neurologic: (x) abNormal _CVA with vision and balance concerns.
Psychiatric: (x) Normal _
Endocrine: (x) Normal _
Hematologic/Lymphatic: (x) Normal _
Allergic/Immunologic: (x) Normal _
�
Medications:�
Active Current Visit Medication List
Category Date Time Status
Acetaminophen [Tylenol/Feverall] Med 11/16/24 21:04 Active
650 mg RECTAL Q4HPRN PRN
Acetaminophen [Tylenol] Med 11/16/24 21:04 Active
650 mg PO Q4HPRN PRN
Aspirin Low Dose EC [Aspir Low (Enteric Coated)] Med 11/17/24 08:00 Active
81 mg PO DAILY
Atorvastatin [Lipitor] Med 11/17/24 18:00 Active
80 mg PO QPM
Bisacodyl [Dulcolax] Med 11/18/24 07:59 Active
10 mg RECTAL DAILYPRN PRN
Clopidogrel Bisulfate [Plavix] Med 11/17/24 08:00 Active
75 mg PO DAILY
Cyanocobalamin [Vitamin B-12] Med 11/17/24 08:00 Active
1,000 mcg PO DAILY
Docusate Sodium [Colace] Med 11/18/24 08:00 Active
100 mg PO BID
Enoxaparin Sodium [Lovenox] Med 11/17/24 18:00 Active
40 mg SC QPM
Flush (0.9% Sodium Chloride) [Flush (Nss)] Med 11/16/24 22:00 Active
See Dose Instructions IV PER PROTOCOL
Gabapentin [Neurontin] Med 11/16/24 22:00 Active
100 mg PO HS
HydrALAZINE [Apresoline] Med 11/16/24 23:00 Active
5 mg IV Q4HPRN PRN
Lisinopril [Zestril] Med 11/17/24 08:00 Active
10 mg PO DAILY
Polyethylene Glycol Powder [Miralax] Med 11/18/24 08:00 Active
17 grams PO DAILY
�
Vitals:�
Temp Pulse Resp BP Pulse Ox
98.0 F 87 18 127/68 98
11/18/24 15:05 11/18/24 15:05 11/18/24 15:05 11/18/24 15:05 11/18/24 15:05
Height 5 ft 3 in
Actual Weight 56.109 kg
Body Mass Index (BMI) 21.9
�
Physical Exam:�
General Appearance/Observation: Well-developed, well-nourished female in no apparent distress.�
Pain/Comfort Assessment: Denies�
Mood/Affect: Appropriate�, pleasant
�
Integumentary/Operative Site:�no lesions noted during exam
�
Eyes: Conjunctiva/Lids: normal���� Pupils: pupils equal round and reactive to light and Accommodation�
Ears/Nose/Throat: oral mucosa moist,� throat clear.������������ Lips/Teeth/Gums: normal�
Cardiovascular: Heart: regular, no murmur�
Pulses: dorsalis pedis 2+ bilaterally�
Respiratory: Respiratory Effort/Chest Expansion: normal������� Auscultation: Clear to auscultation bilaterally�
Gastrointestinal: abdomen not tender, no distension, normal abdominal bowel sounds
Genitourinary: No Dowling�
Extremities:�Edema: None�Cyanosis: None�Trophic�changes: None
Neurology Exam:
Orientation: Alert, Oriented to self, Time, Place�
Memory: Intact for immediate medical concerns
Comprehension: Intact
Two step command: Intact
Naming: Intact
Cranial Nerves:
�� CNII:�Pupillary light reflex: Intact����Visual Field: Left homonymous hemianopsia
�� CN III, IV, : Extraocular muscles: Intact�
�� CN V:�Facial Sensation�at�Forehead: Intact,�Maxilla: Intact,�Mandible: Intact
�� CN VII:�Facial movement: Symmetric
�� CN VIII:�Hearing: Normal
�� CN IX/X:�Speech & swallow: Normal,�Position of Uvula: Midline
�� CN XI:�Shoulder shrug: Symmetric
�� CN XII:�Tongue protrusion: Midline
Sensory:
�� Light touch: Intact in bilateral upper and lower extremities, no extinction to double simultaneous stimulation.
��
�
Reflexes:
�� Biceps: 2+ bilaterally
�� Brachioradialis: 2+ bilaterally
�� Triceps: 2+ bilaterally
�� Patellar: 2+ bilaterally
�� Achilles: 0 bilaterally
�� Babinski: Down going bilaterally
�� Clonus: None
�� Vitaliy: Negative bilaterally�
Cerebellar: Dysmetria/Ataxia: None�
Musculoskeletal: Motor: (Manual muscle scale 0-5)�
Muscle SA EF WE EE FF FA HF KE DF EHL PF
Right� 5 5 5 5 5 5 5 5 5 5 5
Left 5 5 5 5 5 5 5 5 5 5 5
�
Tone: Normal in all extremities�
Range of Motion: Passively within normal limits in all extremities�
�
Lab Results
Labs
WBC 5.1 10^3/uL (4.8-10.8) 11/18/24 08:06
RBC 4.55 10^6/uL (4.20-5.40) 11/18/24 08:06
Hgb 13.5 g/dL (12.0-16.0) 11/18/24 08:06
Hct 41.4 % (37.0-47.0) 11/18/24 08:06
MCV 91.0 fL (81.0-99.0) 11/18/24 08:06
MCH 29.7 pg (27.0-31.0) 11/18/24 08:06
MCHC 32.6 g/dL (33.0-37.0) L 11/18/24 08:06
RDW 13.3 % (11.5-14.5) 11/18/24 08:06
Plt Count 266 10^3/uL (130-400) 11/18/24 08:06
MPV 10.0 fL (7.4-10.4) 11/18/24 08:06
Abs Immat Gran (auto) 0.0 10^3/uL (0-0.05) 11/16/24 16:05
Absolute Neuts (auto) 5.3 10^3/uL (1.4-6.5) 11/16/24 16:05
Absolute Lymphs (auto) 1.4 10^3/uL (1.2-3.4) 11/16/24 16:05
Absolute Monos (auto) 0.6 10^3/uL (0.1-0.6) 11/16/24 16:05
Absolute Eos (auto) 0.1 10^3/uL (0-0.7) 11/16/24 16:05
Absolute Basos (auto) 0.0 10^3/uL (0-0.2) 11/16/24 16:05
Immature Gran % 0.3 % (0-0.5) 11/16/24 16:05
Neutrophils % 72.1 % (42.2-75.2) 11/16/24 16:05
Lymphocytes % 18.5 % (20.5-51.1) L 11/16/24 16:05
Monocytes % 7.5 % (1.7-9.3) 11/16/24 16:05
Eosinophils % 1.1 % (0-6) 11/16/24 16:05
Basophils % 0.5 % (0-2) 11/16/24 16:05
Nucleated RBC % 0 % 11/16/24 16:05
Plt Function - Aspirin 413 ARU 11/17/24 06:58
Sodium 139 mmol/L (135-145) 11/18/24 08:06
Potassium 4.6 mmol/L (3.5-5.1) 11/18/24 08:06
Chloride 105 mmol/L (98-107) 11/18/24 08:06
Carbon Dioxide 26 mmol/L (22-30) 11/18/24 08:06
BUN 22 mg/dl (7-17) H 11/18/24 08:06
Creatinine 0.9 mg/dL (0.6-1.0) 11/18/24 08:06
Estimated Creat Clear 38 ml/min 11/18/24 08:06
eGFR > 60.00 11/18/24 08:06
Glucose 81 mg/dl (70-99) 11/18/24 08:06
Hemoglobin A1c 5.5 % (4.0-5.6) 11/17/24 06:58
Calcium 9.5 mg/dl (8.4-10.2) 11/18/24 08:06
Magnesium 2.1 mg/dl (1.6-2.3) 11/17/24 06:58
Total Bilirubin 0.7 mg/dl (0.2-1.3) 11/16/24 16:05
AST 27 U/L (14-36) 11/16/24 16:05
ALT 15 U/L (0-35) 11/16/24 16:05
Alkaline Phosphatase 90 U/L (38-126) 11/16/24 16:05
Troponin I < 0.012 ng/ml 11/16/24 16:05
Total Protein 7.3 g/dl (6.3-8.2) 11/16/24 16:05
Albumin 4.7 g/dl (3.5-5.0) 11/16/24 16:05
Triglycerides 72 mg/dl (10-149) 11/17/24 06:58
Total Cholesterol 192 mg/dl (50-199) 11/17/24 06:58
LDL Cholesterol, Calc 82 mg/dl 11/17/24 06:58
VLDL Cholesterol, Calc 14 mg/dl (0-30) 11/17/24 06:58
HDL Cholesterol 96 mg/dl 11/17/24 06:58
�
Diagnostic Results:�as per HPI�
�
Echo 11/18/2024
Normal left ventricular chamber size. Normal left ventricular systolic
function. Left ventricular ejection fraction is 55%.
Mild mitral regurgitation.
Mild aortic regurgitation.
Mild tricuspid regurgitation.
No prior echocardiogram for comparison
Assessment:
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
�
Plan�
PT/OT to increase independence with ADLs, improve balance, coordination, endurance, strength, mobility, community reintegration, decreased burden of care on others and family education.�
�
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 Per neuro- 90 days of DAPT. Cont aspirin and started on Plavix 75mg. statin, and blood pressure control (SBP less than 180 and diastolic less than 100 to participate with therapy for ischemic
stroke). Continue to monitor neurologic status.�
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 Will need help scanning the environment
HTN: Lisinopril 10 mg daily, hydralazine 5 mg IV every 4 as needed,, monitor closely�
HLD: Atorvastatin 80 mg every afternoon
Psych: Psychology consult.� Monitor mood, adjust medications as needed.�
Skin: monitor for pressure sores/rashes/lesions.�
Pain: acetaminophen as needed.� Gabapentin 100 mg at bedtime
Bowel: Colace and Senna, PRN bisacodyl.�
Bladder: Time void, PVRs, PRN straight cath.�
GI Prophylaxis: can add Pantoprazole�
DVT Prophylaxis: Mechanical and Lovenox 40 every afternoon
Pulmonary: Incentive spirometry�
Safety: Continue to reinforce assistance with all transfers.�
Code Status:� Full code per chart
Dispo�(date/plan/equipment needs): Home with family care.� Social history reviewed.�
Functional and Medical Goals:�Modified Independent with ADL�s, ambulation, transfers�
Discharge Destination:�Acute inpatient rehabilitation
Attending Statement:
I saw and examined the patient today. Reviewed care plan with patient, therapy, nursing, and physician chef's assistant. I agree with the above subjective and physical exam, and plan as documented by TORI Maya with adjustments made as necessary. A
total of 60 minutes were spent with the patient preparing for the evaluation, obtaining history, performing examination and evaluation, counseling, data review, case management, care coordination, circuit recorder, and EMR documentation.
�
Thank you for allowing me to care for your patient. Please contact me with any questions or concerns.
[2024-11-18 10:03] LABS: Hematocrit 41.4 % (37.0-47.0); Hemoglobin 13.5 g/dL (12.0-16.0); Mean Corp Hgb Conc. 32.6 g/dL (33.0-37.0); Mean Corpuscular Hgb 29.7 pg (27.0-31.0); Platelet Count 266 10^3/uL (130-400); Red Blood Cell Count 4.55 10^6/uL (4.20-5.40); Red Cell Dist. Width 13.3 % (11.5-14.5); White Blood Cell Count 5.1 10^3/uL (4.8-10.8)
[2024-11-18 10:29] LABS: Blood Urea Nitrogen 22 mg/dl (7-17); Calcium 9.5 mg/dl (8.4-10.2); Carbon Dioxide 26 mmol/L (22-30); Chloride 105 mmol/L (98-107); Estimated Creatinine Clearance 38 ml/min; Potassium 4.6 mmol/L (3.5-5.1); Sodium 139 mmol/L (135-145); eGFR > 60.00
[2024-11-18 10:53] LABS: Glucose 81 mg/dl (70-99)
--- NOTE | 2024-11-18 12:24 | W.PN.HOSP.TC ---
Today's Communication/Plan
-
Discharge planning
Assessment / Plan
Assessment / Plan
Gen-AAOx3, NAD
HEENT-NC, AT, anicteric, clear oral mm
Neck-supple
CV-reg, no M, +S1/S2
Lungs-clear B/L
Abd-soft, NT, ND
Ext-no edema
Musculoskeletal-no cyanosis, clubbing
Skin-warm and dry
Neuro-grossly non-focal
Psych-calm, cooperative
Acute stroke- Right inferior occipital CVA, left visual field cut. Discussed risk factor reduction with patient and including strict blood pressure control on discharge. Encouraged her to check her blood pressures at home.
- continue tele
- CT-A negative. MRI will not car changer
- Echo completed, report pending.
- continue ASA/Plavix
- increase to Lipitor 80mg
- neuro-checks
- Neuro eval
- rehab evaluations. Acute rehab recommended. PMR consulted
Essential HTN
- continue MUKESH; normotensive goals
DVT ppx: Lovenox
Code: Full
Dispo -medically stable for rehab placement. Updated at the bedside.
Anticipated Discharge: Within 24 hours
Subjective/Interval History
-
Date of Service: November 18, 2024
Patient seen and examined. Vision is somewhat improved compared to admission.
Objective Data
-
Labs:
Laboratory Results
11/18/24
08:06
WBC 5.1
Hgb 13.5
Hct 41.4
Plt Count 266
Sodium 139
Potassium 4.6
Chloride 105
Carbon Dioxide 26
BUN 22 H
Creatinine 0.9
Glucose 81
Calcium 9.5
Vital Signs:
Vital Signs
Temp Pulse Resp BP Pulse Ox
98.1 F 85 16 160/78 98
11/18/24 11:15 11/18/24 11:15 11/18/24 11:15 11/18/24 11:15 11/18/24 11:15
I&O
11/17/24 11/18/24 11/19/24
06:59 06:59 06:59
Intake Total 480 / 480 1320 / 1320
Balance 480 / 480 1320 / 1320
Review of Systems
-
History Source: Patient
All other systems: Reviewed and negative
--- NOTE | 2024-11-18 16:41 | CM ---
Initial assessment completed with patient, spouse and son at the bedside
Pharmacy verified: [facility] @[address] [place] [address], [place], [place]
Patient lives w/ spouse; split level home; 2 steps to enter; 5 steps up to bedroom and master bath; 3 steps down to basement; railings present
PLOF: reported she was independent with ambulation and ADLs; drove
No SNF utilization history
PT recommends Acute Rehab; [facility] is site preference; referral sent via [facility]
Plan: Discharge to Acute Rehab pending bed availability
[2024-11-18] MEDS: LIPITOR 80 MG PO (17:09)
[2024-11-18] MEDS: LOVENOX 40 MG SC (17:09)
[2024-11-18] MEDS: NEURONTIN 100 MG PO (21:29)
[2024-11-19 03:30] VITALS: BP 127/73
[2024-11-19 07:41] VITALS: BP 137/77
[2024-11-19] MEDS: COLACE 100 MG PO ×2 (09:39→21:11)
[2024-11-19] MEDS: MIRALAX 17 GRAMS PO (09:40)
[2024-11-19] MEDS: ZESTRIL 10 MG PO (09:40)
[2024-11-19 09:41] VITALS: BP 137/77
[2024-11-19] MEDS: ASPIR LOW (ENTERIC COATED) 81 MG PO (09:41)
[2024-11-19] MEDS: VITAMIN B-12 1000 MCG PO (09:41)
[2024-11-19] MEDS: PLAVIX 75 MG PO (09:41)
--- NOTE | 2024-11-19 10:03 | CM ---
Addendum entered by Criselda Danielle 11/19/24 14:43:
Bedno longer available at [facility]
Bedside meeting with pt, spouse and son/[employer]
Therapy with home vs outpt recs now
Pt does not feel safe at home at this time due to steps through out the home
Spouse not able to safely provide assistance
Still requesting acute rehab
Preference is for [facility] if bed opens tomorrow
If not, prefers 1). [facility] 2). [facility] 3). [facility]
Acute referral sent to [facility] and SNF referrals sent to [facility] and [facility]
Pending
Discharge Disposition- acute vs SNF
Original Note:
CM reviewed pt with Dr Rico- anticipate dc today
Bed confirmed with Ki/Mary
Bedside update with pt and spouse
In agreement with plan
IMM verbally reviewed- copy provided
Discharge Disposition- [facility]
--- NOTE | 2024-11-19 10:55 | W.PN.HOSP.TC ---
Today's Communication/Plan
-
Discharge planning
Assessment / Plan
Assessment / Plan
Gen-AAOx3, NAD
HEENT-NC, AT, anicteric, clear oral mm
Neck-supple
CV-reg, no M, +S1/S2
Lungs-clear B/L
Abd-soft, NT, ND
Ext-no edema
Musculoskeletal-no cyanosis, clubbing
Skin-warm and dry
Neuro-grossly non-focal
Psych-calm, cooperative
Acute stroke- Right inferior occipital CVA, left visual field cut. Discussed risk factor reduction with patient and including strict blood pressure control on discharge. Encouraged her to check her blood pressures at home.
- continue tele
- CT-A negative. 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
- Echo completed, report pending.
- continue ASA/Plavix
- increase to Lipitor 80mg
- neuro-checks
- Neuro eval
- rehab evaluations. Acute rehab recommended. PMR consulted
Essential HTN
- continue MUKESH; normotensive goals
DVT ppx: Lovenox
Code: Full
Dispo -medically stable for rehab placement. Updated at the bedside. Case management working on placement.
Anticipated Discharge: Within 24 hours
Subjective/Interval History
-
Date of Service: November 19, 2024
Patient seen and examined. No new complaints.
Objective Data
-
Vital Signs:
Vital Signs
Temp Pulse Resp BP Pulse Ox
98.3 F 72 18 137/77 98
11/19/24 07:41 11/19/24 09:40 11/19/24 07:41 11/19/24 09:40 11/19/24 07:41
I&O
11/18/24 11/19/24 11/20/24
06:59 06:59 06:59
Intake Total 1320 / 1320 1140 / 1140
Balance 1320 / 1320 1140 / 1140
Review of Systems
-
History Source: Patient
All other systems: Reviewed and negative
[2024-11-19 11:23] VITALS: BP 138/72
[2024-11-19 14:52] VITALS: BP 131/71
[2024-11-19] MEDS: LOVENOX 40 MG SC (17:28)
[2024-11-19] MEDS: LIPITOR 80 MG PO (17:29)
[2024-11-19] MEDS: NEURONTIN 100 MG PO (21:11)
[2024-11-19 23:42] VITALS: BP 138/80
--- NOTE | 2024-11-20 04:52 | DOWNTIME ---
There was a [employer] Office Equipment Mechanic Downtime on 11/20/2024 from 0100 to 11/21/2023 at 0420 . Downtime documentation of patient's care, including medication administrations, has been reconciled in the electronic record per guidelines. Refer to the
patient's paper chart under the miscellaneous tab to see printed paper medication records and downtime forms.
[2024-11-20 07:54] VITALS: BP 132/75
[2024-11-20] MEDS: ASPIRIN ENTERIC COATED 325 MG PO (08:40)
[2024-11-20] MEDS: MIRALAX 17 GRAMS PO (08:40)
[2024-11-20] MEDS: COLACE 100 MG PO (08:41)
[2024-11-20] MEDS: ZESTRIL 10 MG PO (08:41)
[2024-11-20] MEDS: VITAMIN B-12 1000 MCG PO (08:41)
[2024-11-20] MEDS: PLAVIX 75 MG PO (08:41)
--- NOTE | 2024-11-20 11:45 | CM ---
Addendum entered by Ayleen Andrew RN 11/20/24 13:51:
PT revaluated pt today . Evaluation said home with VN .
Explained evaluation to son Lee. Offered VN he requested [facility] . Requested VN order for MD.
Imm reviewed with and son .
Shanon [facility]ney liaison notified of referral.
PLAN Home with [facility]
Original Note:
Spoke with [facility] no beds.
Spoke with Sondra Sanchez [facility] rehab no beds .
Spoke with Emerald Fernandez [facility] no beds.
Spoke with [facility] and Spoke with son Lee .
Reviewed above . Son requested [facility] acute rehab.
Referral sent to [facility] who requested another PT evaluation . Will forward PT eval to [facility] fax [phone].
PT has agreed to evaluate her again today .
PLAN depends on PT eval
--- NOTE | 2024-11-20 12:29 | W.PN.HOSP.TC ---
Addendum entered and electronically signed by Sahil Rico DO 11/20/24 14:00:
Informed by case management that plan has changed and now patient will be going home with VN.
Follow-up with PCP and neurology.
Original Note:
Today's Communication/Plan
-
Await placement
Assessment / Plan
Assessment / Plan
Gen-AAOx3, NAD
HEENT-NC, AT, anicteric, clear oral mm
Neck-supple
CV-reg, no M, +S1/S2
Lungs-clear B/L
Abd-soft, NT, ND
Ext-no edema
Musculoskeletal-no cyanosis, clubbing
Skin-warm and dry
Neuro-grossly non-focal
Psych-calm, cooperative
Acute stroke- Right inferior occipital CVA, left visual field cut. Discussed risk factor reduction with patient and including strict blood pressure control on discharge. Encouraged her to check her blood pressures at home.
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 Recommendation for dual antiplatelet therapy for 90 days, high-dose Lipitor as per SAMIS trial.
- continue tele
- CT-A negative. MRI will not gear changer
- Echo completed, report pending.
- continue ASA/Plavix
- increase to Lipitor 80mg. LDL 82.
- neuro-checks
- Neuro eval
- rehab evaluations. Acute rehab recommended. PMR consulted
Essential HTN
- continue MUKESH; normotensive goals
DVT ppx: Lovenox
Code: Full
Dispo -medically stable for rehab placement. Updated at the bedside. Case management working on placement.
Anticipated Discharge: Within 24 hours
Subjective/Interval History
-
Date of Service: November 20, 2024
Patient seen and examined. Had leg cramps last night, now improved.
Objective Data
-
Vital Signs:
Vital Signs
Temp Pulse Resp BP Pulse Ox
98.0 F 73 16 132/75 99
11/20/24 07:54 11/20/24 07:54 11/20/24 07:54 11/20/24 07:54 11/20/24 07:54
I&O
11/19/24 11/20/24 11/21/24
06:59 06:59 06:59
Intake Total 1140 / 1140 800 / 800
Balance 1140 / 1140 800 / 800
Review of Systems
-
History Source: Patient
All other systems: Reviewed and negative
--- NOTE | 2024-11-20 13:59 | W.DS.TRANS ---
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
-
Discharge Instructions:
Discharge Diagnosis/Procedures Acute stroke
Diet Low Fat,Low Cholesterol
Activity As tolerated
Driving Restrictions No driving
Bathing Restrictions None
Instructions:
Stand-Alone Forms:
Changes to Home Medications: Yes
Discharge Medications:
DC Medications w/original date entered in [facility]
cholecalciferol (vitamin D3) 25 mcg (1,000 unit) chewable tablet (Vitamin D3) 25 mcg PO DAILY Supplement #1 tab 04/28/22
magnesium 250 mg tablet 250 mg PO DAILY Electrolyte Repletion #1 tab 04/28/22
lisinopril 10 mg tablet 10 mg PO DAILY Blood pressure #1 tab 01/04/23
acetaminophen 500 mg tablet 500 mg PO Q6HPRN PRN MILD PAIN 11/16/24
calcium carbonate 500 mg PO DAILY 11/16/24
cyanocobalamin (vitamin B-12) 1,000 mcg tablet 1,000 mcg PO DAILY 11/16/24
gabapentin 100 mg capsule 100 mg PO HS 11/16/24
aspirin 325 mg tablet (Kiko Aspirin) 325 mg PO DAILY #30 tabs 11/19/24
atorvastatin 80 mg tablet 80 mg PO QPM #30 tabs 11/19/24
clopidogrel 75 mg tablet 75 mg PO DAILY #30 tabs 11/19/24
docusate sodium 100 mg capsule 100 mg PO BID #0 caps 11/19/24
Home Medication Changes
Aspirin increased to 325 mg daily.
Pending Results: No
[2024-11-20 14:29] VITALS: BP 140/78
--- NOTE | 2024-11-20 14:30 | VNURNOTE ---
Home Health Liaison met with patient, spouse, and son at bedside to discuss [facility] nurse/therapy, visits, schedule and homebound status. All are agreeable and understand that visits at home will be 2-3 x per week to assess and teach medical
management. Provided son with [facility] contact information. All are aware that [facility] will contact them for start of care in 1-2 days after discharge from . All questions answered.
[facility] referral completed in [facility].
== END 2024-11-20 15:01 | disposition home health service (06) | DRG 66 ==
LOC: 3 WEST ACU 20:28
PROVIDERS: Emergency Medicine; Internal Medicine; ADMITTING PHYSICIAN Internal Medicine; ATTENDING PHYSICIAN Hospitalist; CONSULT PHYSICIAN Physical Medicine & Rehabilitation; CONSULT PHYSICIAN Psychiatry & Neurology Clinical Neurophysiology; EMERGENCY PHYSICIAN Emergency Medicine; FAMILY PHYSICIAN Nurse Practitioner Family
DX: I63.9 Cerebral infarction, unspecified (principal); H53.462 Homonymous bilateral field defects, left side; I10 Essential (primary) hypertension; R29.701 NIHSS score 1
CPT/HCPCS: 70450; 70496; 70498; 80048; 80053; 80061; 83036; 83735; 84484; 85025; 85027; 85576; 92610; 93005; 93306; 96374; 97116; 97163; 97167; 97530; 97535; 99285; Q9967

== ENCOUNTER → 2024-12-03 08:10 | Outpatient (REF) | payer MEDICARE, OTHER, SELFPAY ==
[2024-12-03 12:50] LABS: % Basophils 0.5 % (0-2); % Eosinophils 3.5 % (0-6); % Immature Granulocytes 1.5 % (0-0.5); % Monocytes 7.9 % (1.7-9.3); % Neutrophils 68.6 % (42.2-75.2); Absolute Eosinophils 0.2 10^3/uL (0-0.7); Absolute Immature Granulocytes 0.1 10^3/uL (0-0.05); Absolute Lymphocytes 1.1 10^3/uL (1.2-3.4); Absolute Monocytes 0.5 10^3/uL (0.1-0.6); Absolute Neutrophils 4.1 10^3/uL (1.4-6.5); Hematocrit 41.6 % (37.0-47.0); Hemoglobin 13.7 g/dL (12.0-16.0); Mean Corp Hgb Conc. 32.9 g/dL (33.0-37.0); Mean Corpuscular Hgb 30.2 pg (27.0-31.0); Mean Corpuscular Volume 91.6 fL (81.0-99.0); Mean Platelet Volume 10.5 fL (7.4-10.4); Nucleated Red Blood Cells % 0 %; Platelet Count 265 10^3/uL (130-400); Red Blood Cell Count 4.54 10^6/uL (4.20-5.40); Red Cell Dist. Width 12.9 % (11.5-14.5); White Blood Cell Count 5.9 10^3/uL (4.8-10.8)
[2024-12-03 13:19] LABS: ALT (SGPT) 20 U/L (0-35); AST (SGOT) 31 U/L (14-36); Albumin 4.5 g/dl (3.5-5.0); Alkaline Phosphatase 91 U/L (38-126); Blood Urea Nitrogen 15 mg/dl (7-17); Calcium 9.6 mg/dl (8.4-10.2); Carbon Dioxide 25 mmol/L (22-30); Chloride 108 mmol/L (98-107); Glucose 90 mg/dl (70-99); HDL Cholesterol 92 mg/dl; LDL Cholesterol, Calculated 35 mg/dl; Potassium 4.6 mmol/L (3.5-5.1); Sodium 144 mmol/L (135-145); Total Bilirubin 0.6 mg/dl (0.2-1.3); Total Cholesterol 140 mg/dl (50-199); Triglyceride 69 mg/dl (10-149); Very Low Density Lipoprotein 13 mg/dl (0-30); eGFR > 60.00
== END ==
LOC: HWRAD 08:10
PROVIDERS: ATTENDING PHYSICIAN Nurse Practitioner Family
DX: M85.89 Other specified disorders of bone density and structure, multiple sites (principal); E78.00 Pure hypercholesterolemia, unspecified
CPT/HCPCS: 36415; 77080; 80053; 80061; 85025

== ENCOUNTER 2025-05-14 07:48 | Inpatient (IN) | payer MEDICARE, OTHER, SELFPAY ==
--- NOTE | 2025-04-16 14:18 | CM ---
Addendum entered by Lisa Kuhn RN 04/25/25 12:44:
CM spoke with patient who stated that she has not spoke with her family regarding supervision and support post operatively. CM encouraged patient to speak with family regarding supervision. If no supervision available, patient stated that she would
like to go to [facility]. Cm advised that PT will have to evaluate her to see if she qualified for rehab.
CM encouraged patient to call back once further discussions with family have happened.
Addendum entered by Lisa Kuhn RN 04/18/25 13:54:
Demographics: lives multiple story home with elderly
Living situation: independent, lives with
Support Person Post Operatively: and son
History of
VN: yes, currently not on service
SNF: N
Outpatient: [facility], scheduled for 05/16
Has patient purchased required equipment: yes, walker, cane, hip kit
PCP: Brianda Payne
Ph[facility]acy: [facility]
Post Operative Discharge Plan: home with family support, outpatient PT.
Original Note:
CM reviewed medical records. CM left message for orthopedic [place].
[2025-04-23 14:07] VITALS: BMI 22.3
[2025-04-23 14:21] LABS: Hematocrit 41.8 % (37.0-47.0); Hemoglobin 13.5 g/dL (12.0-16.0); Mean Corp Hgb Conc. 32.3 g/dL (33.0-37.0); Mean Corpuscular Volume 91.3 fL (81.0-99.0); Platelet Count 263 10^3/uL (130-400); Red Cell Dist. Width 13.7 % (11.5-14.5)
[2025-04-23 14:42] LABS: ALT (SGPT) 23 U/L (0-35); AST (SGOT) 29 U/L (14-36); Albumin 4.3 g/dl (3.5-5.0); Alkaline Phosphatase 81 U/L (38-126); Blood Urea Nitrogen 20 mg/dl (7-17); Calcium 10.3 mg/dl (8.4-10.2); Carbon Dioxide 30 mmol/L (22-30); Chloride 105 mmol/L (98-107); Estimated Creatinine Clearance 33 ml/min; Glucose 152 mg/dl (70-99); Potassium 4.6 mmol/L (3.5-5.1); Sodium 140 mmol/L (135-145); Total Protein 7.0 g/dl (6.3-8.2); eGFR 54.87
[2025-04-24 08:10] LABS: Glycohemoglobin (HgbA1c) 5.8 % (4.0-5.6)
[2025-04-24 08:43] VITALS: BMI 22.3
--- NOTE | 2025-04-28 13:10 | CM ---
Addendum entered by Lisa Kuhn RN 05/01/25 11:50:
CM spoke with patient and . they are agreeable to placement at [facility]. Cm explained admission process and waiver. CM will remain available as needed.
Addendum entered by Lisa Kuhn RN 04/30/25 11:55:
Patient is eligible for [facility] Waiver.
Addendum entered by Lisa Kuhn RN 04/30/25 11:51:
CM spoke with son Lee at length regarding placement. Son is very concerned that patient will fall as patient's will not be able to assist with care safely. Patient has had a history of multiple falls at home. Patient's son stated that
they would be agreeable to [facility] or [facility]. CM sent preliminary referrals via [facility].
Son plans to speak with patient about his concerns and will contact this CM once he discussed plan with patient. CM will remain available.
CM contacted [facility] to verify if patient is eligible for waiver.
Original Note:
Cm spoke with patient and via phone. Patient plans to meet with her son regarding post operative recovery. Given husbands ambulatory dysfunction, CM advised that another family member be available over night once she is discharged. Patient
will speak with her sons and confirm if they are available for assistance post operatively. Patient will call this CM back with plan for supervision post operatively. CM will remain available.
[2025-05-14] VITALS (22 sets, daily range): BP systolic 107–150; BP diastolic 56–84; PULSE 85; O2SAT 95–96
[2025-05-14] MEDS: CELEBREX 200 MG PO (08:07)
[2025-05-14] MEDS: TYLENOL 650 MG PO ×3 (08:07→20:40)
[2025-05-14] MEDS: NORMOSOL-R/PLASMALYTE-A 1000 IV ×2 (08:07→12:13)
--- NOTE | 2025-05-14 09:32 | W.PN.ORTHO ---
Today's Communication / Plan
-
Patient does live with , however, he has significant
ambulatory dysfunction with no bathroom on main level. They are
planning on purchasing a commode. is unable to
dispose of this safely. I have explained that son must stay with
patient for at least one week in the event she goes home. More
likely, she will require SNF. We will assess the day of
discharge based on physical and occupational therapy/functional
needs utilizing rolling walker.
Assessment
.
Dressing:
Clean, dry and intact.
Assessment:
hx CVA-resolved deficits-statin+ ASA+monitor BP
-fall precautions
Pain Control-Ultram -minimize
Plan
.
Surgery / Date: R LESLIE Dr Dorado 05/14/25
DVT Prophylaxis: Aspirin
Activity:
Out of bed.
PT/OT
Vital Signs and Labs
.
Vital Signs and Labs:
Lab Results
04/23/25 13:22
04/23/25 13:21
Temp Pulse Resp BP Pulse Ox
97.5 F 67 16 150/82 98
05/14/25 07:54 05/14/25 07:54 05/14/25 07:54 05/14/25 07:54 05/14/25 07:54
--- NOTE | 2025-05-14 09:39 | W.DS.TRANS ---
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
-
Discharge Instructions:
Sleep Apnea Risk Low
Discharge Diagnosis/Procedures R LESLIE 05/14/25 Dr. Dorado
Diet As tolerated
Activity With Walker,With assistance
Driving Restrictions No driving
Bathing Restrictions OK to Shower
Other Services PT,VN,OT
Instructions:
Stand-Alone Forms: Total Hip/Knee Replacement D/C
Changes to Home Medications: Yes
Discharge Medications:
DC Medications w/original date entered in [facility]
cholecalciferol (vitamin D3) 25 mcg (1,000 unit) chewable tablet (Vitamin D3) 25 mcg PO DAILY Supplement #1 tab 04/28/22
magnesium 250 mg tablet 250 mg PO DAILY Electrolyte Repletion #1 tab 04/28/22
cyanocobalamin (vitamin B-12) 1,000 mcg tablet 1,000 mcg PO DAILY 11/16/24
gabapentin 100 mg capsule 200 mg PO HS 11/16/24
atorvastatin 80 mg tablet 80 mg PO HS 04/22/25
calcium 600 mg (as carbonate)-vitamin D3 5 mcg (200 unit) tablet 1 tab PO DAILY 04/22/25
dexamethasone 4 mg tablet 4 mg PO BID inflammation #6 tabs 04/23/25
famotidine 20 mg tablet 20 mg PO HS GI prophylaxis #30 tabs 04/23/25
mupirocin 2 % topical ointment 1 applic topical BID infection prevention #1 tube 04/23/25
tramadol 50 mg tablet 50 mg PO Q6H PRN 1 tab moderate pain, 2 if severe #30 tabs 04/23/25
acetaminophen 500 mg tablet 1,000 mg (2 x 500 mg) PO QID #0 tabs 05/14/25
aspirin 325 mg tablet 325 mg PO DAILY blood clot prevention #1 tab 05/14/25
docusate sodium 100 mg capsule 100 mg PO BID #0 caps 05/14/25
lisinopril 20 mg tablet 20 mg PO DAILY #0 tabs 05/14/25
magnesium hydroxide 400 mg/5 mL oral suspension (Milk of Magnesia) 30 ml PO HS PRN constipation #1 mL 05/14/25
sennosides 8.6 mg tablet (Senokot) 17.2 mg (2 x 8.6 mg) PO BID laxative #2 tabs 05/14/25
Home Medication Changes
mupirocin 2 % topical ointment 1 applic topical BID infection prevention #1 tube 04/23/25
tramadol 50 mg tablet 50 mg PO Q6H PRN 1 tab moderate pain, 2 if severe #30 tabs 04/23/25
acetaminophen 500 mg tablet 1,000 mg (2 x 500 mg) PO QID #0 tabs 05/14/25
aspirin 325 mg tablet 325 mg PO DAILY blood clot prevention #1 tab 05/14/25
docusate sodium 100 mg capsule 100 mg PO BID #0 caps 05/14/25
lisinopril 20 mg tablet 20 mg PO DAILY #0 tabs 05/14/25
magnesium hydroxide 400 mg/5 mL oral suspension (Milk of Magnesia) 30 ml PO HS PRN constipation #1 mL 05/14/25
sennosides 8.6 mg tablet (Senokot) 17.2 mg (2 x 8.6 mg) PO BID laxative #2 tabs 05/14/25
Pending Results: No
--- NOTE | 2025-05-14 14:29 | CM ---
Cm reviewed medical records. CM updated [facility] via [facility], that patient has had her surgery and PT/OT evals are pending.
PLAN: SNF
[2025-05-14] MEDS: ULTRAM 50 MG PO (14:51)
[2025-05-14] MEDS: ANCEF 5 IV (16:46)
--- NOTE | 2025-05-14 17:48 | PTCARENOTE ---
Pt arrived to [facility] s/p Right LESLIE. Right hip dressing c/d/i. Thigh high teds and scds on pt. 95% on RA. Pt oriented to room and call jules. Bed locked and in lowest position. Care ongoing.
[2025-05-14] MEDS: ASPIRIN 325 MG PO (18:20)
[2025-05-14] MEDS: DECADRON 4 MG IV (20:40)
[2025-05-14] MEDS: BACTROBAN 2% OINTMENT 1 APPLIC NASAL (20:40)
[2025-05-14] MEDS: SENOKOT 17.2 MG PO (20:40)
[2025-05-14] MEDS: TORADOL 15 MG IV (20:40)
[2025-05-14] MEDS: COLACE 100 MG PO (20:40)
[2025-05-14] MEDS: NEURONTIN 200 MG PO (21:37)
[2025-05-14] MEDS: LIPITOR 80 MG PO (21:37)
[2025-05-14] MEDS: PEPCID 20 MG PO (21:37)
[2025-05-15] MEDS: ANCEF 5 IV
[2025-05-15 03:09] VITALS: BP 124/72
[2025-05-15] MEDS: TYLENOL 650 MG PO ×5 (03:29→16:29)
[2025-05-15 07:00] VITALS: BP 128/67
[2025-05-15] MEDS: BACTROBAN 2% OINTMENT 1 APPLIC NASAL (07:45)
[2025-05-15] MEDS: ASPIRIN 325 MG PO (07:45)
[2025-05-15] MEDS: DECADRON 4 MG IV (07:45)
[2025-05-15] MEDS: MOBIC 15 MG PO (07:46)
[2025-05-15] MEDS: MAGNESIUM OXIDE 400 MG PO (07:46)
[2025-05-15] MEDS: TORADOL 15 MG IV (07:46)
[2025-05-15] MEDS: SENOKOT 17.2 MG PO (07:46)
[2025-05-15] MEDS: COLACE 100 MG PO (07:46)
--- NOTE | 2025-05-15 08:27 | CM ---
CM reviewed medical records. CM sent updated referral to [facility] for acceptance review. CM will await determination.
PLAN: SNF
[2025-05-15 08:51] VITALS: BP 148/69; PULSE 85; O2SAT 100
--- NOTE | 2025-05-15 09:38 | CM ---
CM updated patient, and son in room regarding discharge planning process. CM is awaiting acceptance to [facility].
[2025-05-15 11:00] VITALS: BP 136/68
--- NOTE | 2025-05-15 11:15 | CM ---
Addendum entered by Lisa Kuhn RN 05/15/25 13:56:
[facility] has approved SNF stay. CM updated patient, and son at bedside. CM updated Beckie at [facility] with 5pm bean picker.
Addendum entered by Lisa Kuhn RN 05/15/25 12:28:
[facility]
Report
[phone]

Original Note:
[facility] has accepted patient. CM updated patient and at bedside.
CM updated Jess at [facility] to assist with authorization through waiver program.
--- NOTE | 2025-05-15 11:35 | W.PN.ORTHO ---
Today's Communication / Plan
-
Patient will reuquire additional rehab needs prior to returning home at a mod I level w/ RW. She will be transferred to SNF until functionally independent.
Assessment
.
Distal Motor Intact: Yes
Dressing:
Clean, dry and intact.
Assessment:
hx CVA-resolved deficits-statin+ ASA+monitor BP
-fall precautions
Pain Control-Ultram -minimize
Plan
.
Surgery / Date: R LESLIE Dr Dorado 05/14/25
DVT Prophylaxis: Aspirin
Activity:
Out of bed.
PT/OT
Discharge Plan: SNF
Subjective
.
.:
Patient resting comfortably.
Vital Signs and Labs
.
Vital Signs and Labs:
Lab Results
04/23/25 13:22
04/23/25 13:21
Temp Pulse Resp BP Pulse Ox
98.0 F 70 16 136/68 100
05/15/25 11:00 05/15/25 11:00 05/15/25 11:00 05/15/25 11:00 05/15/25 11:00
Non-invasive Hgb result: 11.9
Physical Exam
-
HEENT: No pallor, cyanosis, or jaundice. Throat clear.
NECK: Supple. No JVD.
RESPIRATORY: Lungs clear to auscultation.
CVS: S1, S2 normal. RRR.� No murmur, rub or gallop.
ABDOMEN: Soft, non-tender. No distension. BS+/normal.
EXTREMITIES: strength equal, no calf pain with palpation
MANAGER MEDICAL AFFAIRS: AOx3. No focal deficits. admissions rn grossly intact
[2025-05-15 11:43] VITALS: BP 136/68; PULSE 69; O2SAT 100
[2025-05-15 12:18] LABS: COVID-19 Antigen Negative (Negative)
[2025-05-15] MEDS: PREVNAR 20 0.5 ML IM (13:13)
[2025-05-15 15:03] VITALS: BP 136/66
== END 2025-05-15 18:05 | DRG 470 ==
LOC: 2 SOUTH 07:48
PROVIDERS: Physician Assistant Medical; ADMITTING PHYSICIAN Orthopaedic Surgery; FAMILY PHYSICIAN Nurse Practitioner Family
PROC: 0SR903A Replacement of Right Hip Joint with Ceramic Synthetic Substitute, Uncemented, Open Approach (ICD-10-PCS; 2025-05-14)
PROC: 3E0234Z Introduction of Serum, Toxoid and Vaccine into Muscle, Percutaneous Approach (ICD-10-PCS; 2025-05-15)
DX: M16.11 Unilateral primary osteoarthritis, right hip (principal); I49.3 Ventricular premature depolarization; I10 Essential (primary) hypertension; E78.5 Hyperlipidemia, unspecified; M85.80 Other specified disorders of bone density and structure, unspecified site; G43.909 Migraine, unspecified, not intractable, without status migrainosus; Z96.642 Presence of left artificial hip joint; Z90.710 Acquired absence of both cervix and uterus; Z98.1 Arthrodesis status; Z79.82 Long term (current) use of aspirin; Z87.891 Personal history of nicotine dependence; Z88.0 Allergy status to penicillin; Z86.73 Personal history of transient ischemic attack (TIA), and cerebral infarction without residual deficits; Z23 Encounter for immunization; Z11.52 Encounter for screening for COVID-19
CPT/HCPCS: 36415; 73502; 80053; 83036; 85027; 87070; 87811; 90677; 93005; 97110; 97116; 97163; 97167; 97535; C1713; C1776; G0009

== ENCOUNTER 2025-07-03 09:55 | Outpatient (RCR) | payer MEDICARE, OTHER, SELFPAY | END 2025-07-03 23:59 | disposition home or self-care (01) | LOC: RPT 09:55 | PROVIDERS: ATTENDING PHYSICIAN Orthopaedic Surgery; FAMILY PHYSICIAN Nurse Practitioner Family | DX: Z47.1 Aftercare following joint replacement surgery (principal); R26.89 Other abnormalities of gait and mobility; M25.551 Pain in right hip; Z73.6 Limitation of activities due to disability; M62.81 Muscle weakness (generalized); Z96.641 Presence of right artificial hip joint | CPT/HCPCS: 97110; 97116; 97162; 97530; 97535 ==

== ENCOUNTER 2025-08-01 06:53 | Outpatient (RCR) | payer MEDICARE, OTHER, SELFPAY | END 2025-08-01 23:59 | disposition home or self-care (01) | LOC: RPT 06:53 | PROVIDERS: ATTENDING PHYSICIAN Orthopaedic Surgery; FAMILY PHYSICIAN Nurse Practitioner Family | DX: Z47.1 Aftercare following joint replacement surgery (principal); R26.89 Other abnormalities of gait and mobility; M25.551 Pain in right hip; Z73.6 Limitation of activities due to disability; Z96.641 Presence of right artificial hip joint; M62.81 Muscle weakness (generalized) | CPT/HCPCS: 97110; 97116; 97530 ==

== ENCOUNTER 2025-08-12 07:30 | Outpatient (RCR) | payer MEDICARE, OTHER, SELFPAY | END 2025-08-12 23:59 | disposition home or self-care (01) | LOC: RPT 07:30 | PROVIDERS: ATTENDING PHYSICIAN Orthopaedic Surgery; FAMILY PHYSICIAN Nurse Practitioner Family | DX: Z47.1 Aftercare following joint replacement surgery (principal); R26.89 Other abnormalities of gait and mobility; M25.551 Pain in right hip; Z73.6 Limitation of activities due to disability; Z96.641 Presence of right artificial hip joint; M62.81 Muscle weakness (generalized) | CPT/HCPCS: 97110; 97530 ==

== ENCOUNTER 2025-08-14 09:35 | Emergency (ER) | payer MEDICARE, OTHER, SELFPAY ==
[2025-08-14 09:36] VITALS: BP 136/75
[2025-08-14] MEDS: TORADOL 15 MG IM (11:54)
--- NOTE | 2025-08-14 12:36 | ED.GENMED ---
History of Present Illness
<Jossie Soto PA-C - Last Filed: 08/14/25 14:50>
General
Chief Complaint: Musculo-Skeletal Complaint
Time Seen by Provider: 08/14/25 11:02
History of Present Illness
History of Present Illness:
75-year-old female past medical history of hypertension, hyperlipidemia, CVA who swelling and pain in addition to left foot pain that began Monday when she woke up. Denies any injury trauma to her leg. No recent falls. Denies any fevers or chills.
Past History
<Jossie Soto PA-C - Last Filed: 08/14/25 14:50>
Past History
ED Past Medical History: Other (Questionable PFO, herniated disc, arthritis, migraine); Negative Arrthythmia or CVA
ED Past Surgical History: Gynecological
Social History
Tobacco: Non-smoker
Alcohol: None
Drug: None
Personal:
Living: with family
Employment: Retired
Phy Exam
<Jossie Soto PA-C - Last Filed: 08/14/25 14:50>
General Physical Exam
General Presentation: well appearing and no apparent distress
General Skin: warm and dry
General Habitus: normal
General Mental: alert
General Hydration: appears well hydrated
ENT Exam
ENT Exam: EOMI, pharynx normal, neck supple and normocephalic
Eye Exam
Eye Exam: PERRL, cornea clear and conjunctiva normal
Cardiovascular Exam
Cardiovascular Exam: regular rate/rhythm, no edema, no murmur and normal peripheral pulses
Pulmonary Exam
Pulmonary Exam: lungs clear, no respiratory distress, no rales, no crackles, no rhonchi, no stridor, no wheezing and no cough
Gastrointestinal Exam
Gastrointestinal Exam: normal bowel sounds, non tender, soft, no organomegaly, no pulsatile mass and non distended
Neurological Exam
Neurological Exam: alert, oriented x3, no motor deficits and speech normal
Musculoskeletal Exam
Musculoskeletal Exam: full ROM, edema and joint swelling (Right knee mildly swollen; no ecchymosis, erythema or skin changes)
Skin Exam
Skin Exam: normal color, warm/dry, no rash and no petechia
Psychiatric Exam
Psychiatric Exam: normal mood/affect
Course
<Jossie Soto PA-C - Last Filed: 08/14/25 14:50>
Orders/Labs/Results
Orders:
Orders
08/14/25 11:05
CR Foot - Left Min 3 Views Urgent
Reason For Exam: forefoot pain
CR Knee - Left 4 Or More View* Urgent
Reason For Exam: pain
08/14/25 11:25
Ketorolac [Toradol] 15 mg IM NOW STA
Vital Signs
Initial and Last Documented VS:
Initial Vital Signs
Temp Pulse Resp BP Pulse Ox
36.6 C 95 20 136/75 100
08/14/25 09:36 08/14/25 09:36 08/14/25 09:36 08/14/25 09:36 08/14/25 09:36
Last Documented Vital Signs
Temp Pulse Resp BP Pulse Ox
36.6 C 95 16 136/75 100
08/14/25 09:36 08/14/25 09:36 08/14/25 12:03 08/14/25 09:36 08/14/25 12:38
<Quinn Matthews MD - Last Filed: 08/14/25 12:50>
Orders/Labs/Results
Orders:
Orders
08/14/25 11:05
CR Foot - Left Min 3 Views Urgent
Reason For Exam: forefoot pain
CR Knee - Left 4 Or More View* Urgent
Reason For Exam: pain
08/14/25 11:25
Ketorolac [Toradol] 15 mg IM NOW STA
Vital Signs
Initial and Last Documented VS:
Initial Vital Signs
Temp Pulse Resp BP Pulse Ox
36.6 C 95 20 136/75 100
08/14/25 09:36 08/14/25 09:36 08/14/25 09:36 08/14/25 09:36 08/14/25 09:36
Last Documented Vital Signs
Temp Pulse Resp BP Pulse Ox
36.6 C 95 16 136/75 100
08/14/25 09:36 08/14/25 09:36 08/14/25 12:03 08/14/25 09:36 08/14/25 12:38
<Jossie Soto PA-C - Last Filed: 08/14/25 14:50>
MDM/Problems Addressed
Differential Diagnosis Includes:
X-ray of your foot obtained and negative for any acute traumatic injury. Discussed findings with patient who feels slightly better after Toradol. Will have her follow-up with orthopedic surgery next week if pain persist. Ricardo wrap for her knee
prior to leaving. Return precautions discussed. Son is present and in agreement with plan.
<Jossie Soto PA-C - Last Filed: 08/14/25 14:50>
*Pulse Oximetry
SaO2: 100
Oxygen Mode of Delivery: Room air
Patient hypoxic: no
*Critical Care Note
Total Time (30-74mins, 75-104mins- exclusive of procedures): Not Applicable
ED Attending Note
<Jossie Soto PA-C - Last Filed: 08/14/25 14:50>
-
Portions of this chart may have been created with voice recognition software.� Occasional wrong word or��sound alike� substitutions may have occurred due to the inherent limitations of voice recognition software.
<Quinn Matthews MD - Last Filed: 08/14/25 12:50>
ED Attending Note
Patient seen and examined by attending physician: Yes
I performed the substantive portion of visit, reviewed & personally made and approve the management plan that is documented in note by myself or MARIA DE JESUS.: Yes
ED Attending Note:
85-year-old female sudden onset of knee pain Monday she felt like she might of twisted it in the middle the night. Complaining of some ongoing swelling and pain. No fever or chills. No recent dental issues. No recent antibiotics or infectious
issues.
On exam patient is nontoxic in no distress. Warm and dry. Well. Mild swelling of ballottement to the left knee with tenderness. No significant pain with flexion or extension of the knee however. Calf is normal. Good distal pulses and color.
Foot is normal.
Impression is left knee effusion/inflammatory response. Clinically highly doubt septic arthritis. Very low suspicion. No fever no risk factor no erythema no pain with motion. X-rays unremarkable. Anti-inflammatories and orthopedic follow-up
Discharge Plan
Departure
Prescriptions:
No Action
magnesium 250 mg Tablet
250 mg PO DAILY Qty: 1 0RF
cholecalciferol (vitamin D3) [Vitamin D3] 25 mcg (1,000 unit) Tablet,Chewable
25 mcg PO DAILY Qty: 1 0RF
cyanocobalamin (vitamin B-12) 1,000 mcg Tablet
1,000 mcg PO DAILY
gabapentin 100 mg Capsule
200 mg PO HS
calcium carbonate-vitamin D3 600 mg-5 mcg (200 unit) Tablet
1 tab PO DAILY
atorvastatin 80 mg tablet
80 mg PO HS
mupirocin 2 % ointment
1 applic topical BID Qty: 1 0RF
Patient Comments:
pt stated this 3 days ago- last dose was this am.
tramadol 50 mg tablet
50 mg PO Q6H PRN (Reason: 1 tab moderate pain, 2 if severe) Qty: 30 0RF
Rx Instructions:
ongoing therapy
famotidine 20 mg tablet
20 mg PO HS Qty: 30 0RF
Rx Instructions:
post-op
dexamethasone 4 mg tablet
4 mg PO BID Qty: 6 0RF
Rx Instructions:
take with food
post-op use only
lisinopril 20 mg Tablet
20 mg PO DAILY Qty: 0 0RF
acetaminophen 500 mg Tablet
1,000 mg PO QID Qty: 0 0RF
docusate sodium 100 mg capsule
100 mg PO BID Qty: 0 0RF
aspirin 325 mg tablet
325 mg PO DAILY Qty: 1 0RF
Rx Instructions:
Take with food
magnesium hydroxide [Milk of Magnesia] 400 mg/5 mL suspension
30 ml PO HS PRN (Reason: constipation) Qty: 1 0RF
Rx Instructions:
CONTINUE colace W/senokot-if no bowel movement 1 day POST-OP -add milk of mag
sennosides [Senokot] 8.6 mg tablet
17.2 mg PO BID Qty: 2 0RF
Referrals:
Brianda Payne CRNP [Family Provider, Family Practice]
Interventions
Interventions:
*Risk Screen - Suicide Last Done: 08/14/25 09:36
*General Assessment Last Done: 08/14/25 09:36
*Neglect/Abuse Screening Last Done: 08/14/25 09:36
*ED COVID-19 Vaccine History Last Done: 08/14/25 11:23
*ED Influenza Vaccine History Last Done: 08/14/25 11:23
[facility] Fall Risk Assessment Tool Last Done: 08/14/25 12:03
ED-Musculoskeletal Assessment Last Done: 08/14/25 12:03
Discharge Date and Time
Print Language: KHMER
== END 2025-08-14 15:45 | disposition home or self-care (01) ==
LOC: EMR 09:35
PROVIDERS: EMERGENCY PHYSICIAN Emergency Medicine; FAMILY PHYSICIAN Nurse Practitioner Family
DX: S83.92XA Sprain of unspecified site of left knee, initial encounter (principal); M79.672 Pain in left foot; X50.1XXA Overexertion from prolonged static or awkward postures, initial encounter; I10 Essential (primary) hypertension; E78.5 Hyperlipidemia, unspecified; Z86.73 Personal history of transient ischemic attack (TIA), and cerebral infarction without residual deficits
CPT/HCPCS: 99284; 96372; 73564; 73630

== ENCOUNTER → 2025-08-18 15:33 | Outpatient (REF) | payer MEDICARE, OTHER, SELFPAY ==
[2025-08-18 16:45] LABS: Body Fluid Second Tech FB
== END ==
LOC: REG 15:33
PROVIDERS: ATTENDING PHYSICIAN Physician Assistant Surgical
DX: M25.462 Effusion, left knee (principal)
CPT/HCPCS: 89051; 89060

== ENCOUNTER → 2025-08-26 08:59 | Outpatient (REF) | payer MEDICARE, OTHER, SELFPAY | LOC: RAD 08:59 | PROVIDERS: ATTENDING PHYSICIAN Orthopaedic Surgery; FAMILY PHYSICIAN Nurse Practitioner Family | DX: M79.89 Other specified soft tissue disorders (principal); R22.42 Localized swelling, mass and lump, left lower limb | CPT/HCPCS: 93971 ==